=== PATIENT | male | born 2000 | race Caucasian/White ===

== ENCOUNTER 2023-11-04 15:43 | Inpatient (IN) | payer OTHER, SELFPAY ==
[2023-11-04 16:29] VITALS: BMI 19.8
[2023-11-04 16:30] VITALS: BP 114/65; PULSE 75; RESP 16; TEMP 36.8; O2SAT 98
[2023-11-04 19:21] LABS: Alanine Aminotransferase 26 U/L (0-40); Albumin Level 4.6 g/dL (3.5-5.0); Alkaline Phosphatase 72 U/L (39-117); Anion Gap 18 (12-20); Aspartate Amino Transferase 23 U/L (5-37); Bilirubin Total 2.4 mg/dL (0.0-1.0); Blood Urea Nitrogen 20 mg/dL (9-16); Calcium 9.8 mg/dL (8.4-10.2); Carbon Dioxide 29 mmol/L (22-29); Chloride 96 mmol/L (96-108); Creatinine Clr Calc Pharmacy 102.5; Estimated Glomerular Filt Rate > 60; Glucose Random 104 mg/dL (60-115); Potassium 4.2 mmol/L (3.3-5.1); Sodium 139 mmol/L (135-145); Total Protein 7.6 g/dL (6.5-8.0)
--- NOTE | 2023-11-04 19:41 | P.CONHOSP_ITS ---
History of Present Illness Data of Consult Service Date: 11/04/23 Primary Care Provider: Unknown Physician HPI Reason for consult: Admission H&P Pt is a 23-year-old male with a PMH significant for?Crohn's, hx of cholecystectomy, and anxiety who is admitted to [facility] psychiatry unit for increased anxiety and depression with vague SI with no plan. Patient apparently has been distraught over ongoing medical conditions and has sent messages to his parents asking them to euthanize him. Medical consult for admission H&P. Pt has multiple chronic complaints, including headache, central nonradiating abdominal pain, nausea, and diarrhea at least once a week. Patient is not on any medication for his Crohn's, but follows a carnivore/keto diet to help manage symptoms. Last flare was in 2019. Patient also complains of multiple canker sores on his cheek and under his tongue for the past few days. Denies chest pain/pressure, palpitations. No shortness of breath. Denies fever, chills. CMP reviewed, significant for elevated bilirubin at 2.4, otherwise unremarkable. Review of Systems 2 Review of Systems: Multiple canker sores on cheeks and under tongue Chronic central, nonradiating abdominal pain Chronic headache Chronic diarrhea at least once a week Chronic nausea PMFSH Medical History (Updated 11/04/23 @ 22:39 by ANTIONE Lopez) Chronic nausea Chronic headaches Crohn's disease Surgical History (Updated 11/04/23 @ 22:37 by ANTIONE Lopez) History of cholecystectomy Social History Advance Directives: No Advance Directives Information Provided: No Meds Allergies Allergy/AdvReac Type Severity Reaction Status Date / Time No Known Allergies Allergy Verified 11/04/23 16:35 Active Medications: Current Medications Acetaminophen (Acetaminophen 325 Mg Tablet) 650 mg PO Q6H PRN PRN Reason: Headache/Pain Mild Scale (1-3) Al Hydroxide/Mg Hydroxide (Magnesium Hydrox/Alum Hydrox 30 Ml Oral.Susp) 30 ml PO Q6H PRN PRN Reason: Heartburn/Nausea Hydroxyzine HCl (Hydroxyzine Hcl 25 Mg Tablet) 25 mg PO Q6H PRN PRN Reason: Anxiety Magnesium Hydroxide (Milk Of Magnesia 30 Ml Oral.Susp) 30 ml PO DAILY PRN PRN Reason: Constipation Nicotine (Nicotine 21 Mg Patch.Td24) 21 mg TRANSDERMA DAILY PRN PRN Reason: smoking cessation Nicotine Polacrilex (Nicotine Polacrilex 2 Mg Gum) 4 mg BUCCAL Q2H PRN PRN Reason: Nicotine Cravings Trazodone HCl (Trazodone Hcl 50 Mg Tablet) 50 mg PO BEDTIME MRX1 PRN PRN Reason: Insomnia Physical Exam 2 Vital Signs and Narrative: Vital Signs: BMI result Body Mass Index 19.8 Constitutional: Alert, thin, in no acute distress. Mental Status: Oriented to person, place and time. Eyes: Pupils are equal, round, and reactive to light. Ear, Nose, and Throat: Oval ulcer anterior cheek, smaller ulcers under tongue. Mucous membranes moist. Ears and nose without deformities. Trachea midline. Respiratory: Clear to auscultation bilaterally. No wheezing, rales, or rhonchi. Cardiovascular: S1, S2 regular. No murmurs, rubs, or gallops. Gastrointestinal: Abdomen soft, non-tender, non-distended. Normal bowel sounds. Neurologic: Cranial nerves II-XII are grossly intact bilaterally. No focal neurological deficits. Moves all extremities spontaneously. Skin: Warm, dry. Musculoskeletal: No cyanosis or clubbing. Extremities: No edema. Psychiatric: Normal mood and affect. Results Labs 11/04/23 18:53 Labs: Laboratory Results - last 24 hr 11/04/23 18:53 Anion Gap 18 Estim Creat Clear Calc 102.5 Estimated GFR > 60 Random Glucose 104 Calcium 9.8 Total Bilirubin 2.4 H AST 23 ALT 26 Alkaline Phosphatase 72 Total Protein 7.6 Albumin 4.6 Assessment and Plan (1) Medical clearance for psychiatric admission: Status: Acute Plan Pt is a 23-year-old male with a PMH significant for?Crohn's, hx of cholecystectomy, and anxiety who is admitted to [facility] psychiat[facility] unit for increased anxiety and depression with vague SI with no plan. Patient apparently has been distraught over ongoing medical conditions and has sent messages to his parents asking them to euthanize him. Medical consult for admission H&P. Mood disorder Plan as per Psychiatry Aphthous ulcers Anbesol qid prn Crohn's disease Not in acute flare, not on home medications Continue keto/carnivore diet Chronic headaches Acetaminophen Thank you for allowing us to participate in the care of this patient. Signing off at this time. Please re-consult if any acute complaints or issues arise.
[2023-11-04] MEDS: Nicotine Polacrilex 2 MG GUM 4 MG BUCCAL (21:40)
[2023-11-05] MEDS: Nicotine Polacrilex 2 MG GUM 4 MG BUCCAL (00:52)
--- NOTE | 2023-11-05 02:37 | PC.ADMIT ---
Patient is a 23 year old single Setswana speaking male, admitted as a CV admission to at 1600 11/04/23 and placed on 15 minute safety checks. Patient compliant with skin check. Patient was medically cleared in the [facility] ED, evaluated by the crisis team and deemed in need of IPLOC secondary to not eating, hopelessness and reporting SI to his parents. He had also texted his parents to euthanize him to get him out of his current psychiatric episode. Patient has a history of anxiety as well as a history of anorexia. Patient said his issues stem from Akathisia that occurred a number of years ago after he was given a shot of Reglan. He said he has not felt the same since, and he has tried medications with limited success to reduce his achy feeling . Patient was guarded and limited with his answers to questions during the admission process. He said other than Akathisia he is doing okay. He denied any SI, HI, AH or VH. Patient did mention that he has a neuropsychiatrist in [place] who has tried to help him. He said that he is currently only eating meat to help with his symptoms. He was able to sign legal releases for his father, mother, pharmacy and the neuropsychiatrist.. He said he really does not think he needs to be in the hospital and would like to leave as soon as possible. After speaking with this creative writer, the patient had a half hour visit with his parents. Patient compliant with skin check, ate dinner and then proceeded to eat a wide variety of snacks, including ice cream, sandwich, juice, crackers, potato chips and jello. This creative writer spoke with the patient's mother, who had called to check on the patient. She said he has been steadily getting worse for the last few weeks and has cut way down on his food consumption. The mother also said the patient has a history of tube feeding when he was younger as well as multiple concussions from playing sports. The mother said she is available to answer questions and hopes the providers here will obtain records from [facility] , [facility] and the neuropsychiatrist. Both parents are concerned for their son's health and have tried to encourage him to take medications to relieve his symptoms. According to the mother, Seroquel and Cymbalta had been helpful in the past but that her son said the efficacy wore off after a few months and he does not want to risk side effects from taking medications again.
[2023-11-05 07:00] VITALS: BMI 21.4
[2023-11-05 08:00] VITALS: BP 133/83; PULSE 71; RESP 18; TEMP 2.7; TEMP 36.9; O2SAT 99
[2023-11-05 09:54] LABS: Estimated Average Glucose 97 mg/dL
[2023-11-05 10:01] LABS: Cholesterol 116 mg/dL (<200); HDL Cholesterol 40 mg/dL (>40); LDL Cholesterol Calculated 61 mg/dL (<100); Triglycerides 79 mg/dL (<150)
[2023-11-05 10:17] LABS: TSH reflex Free T4 1.37 uIU/mL (0.32-4.0)
--- NOTE | 2023-11-05 10:51 | HO.PSYADMNOT ---
HPI Date of Service: 11/05/23 Chief Complaint: Gen Anxiety D/O Unspec Psychosis Sources of Information: patient interviewed, chart reviewed and crisis/core team assessment reviewed Additional Sources of Information: Mother HPI Subjective Notes: Qureshi Warning and Conditional Voluntary Healthcare Proxy: No Guardianship: No Medical Problems Affecting Mental Status: Yes Narrative: 23 yo male, hx of anorexia, asthma, cluster B personality disorder, concussions, FTT, MDD, psychosis. Reports he is here for med trials. Hx of efficacy with Cymbalta and Seroquel. He found Cymbalta to be unhelpful so would like to trial Effexor (Cymbalta was not a full trial per his report). Reports sx began 5 years ago with a severe akathesia from an antiemetic, Reglan. Believes this sx has recurred. States he is here on a voluntary basis, but is very scared, because when ill, I am a different person. Allowed a brief meeting then asked to continue at another time. Struggling to eat with N/V for a few weeks. Experiences SI intermittently, has requested parents euthanize him. Denies plan or intent, Denies SIBS. Does punch through trivedi when angry. Mom reports pt is struggling to regulate mood with insomnia, agitation. Sensitive to smell-demands family not cook or eat in the home. Asks family to not enter his room, to talk with him from his doorway and needs to shower often to rid himself of smells. He is resistant to meds- using estrogen, elemental cobalt, peptides. Pt states he will try to work with team on meds. Neuro recommends cymbalta, olanzapine trial Past Psychiatric History: IP:2019 [facility] [place]: None. Mitra Connelly, neurologist prescribes Trials: Cymbalta, Seroquel Medical Evaluation Reviewed: Yes [facility] Medical History (Updated 11/05/23 @ 17:52 by Leesa Urbano APRN) TBI (traumatic brain injury) Anorexia Severe recurrent major depression w/psychotic features, mood-congruent Chronic nausea Chronic headaches Crohn's disease Surgical History History of cholecystectomy Social History: Lives in [place] with parents. Currently not working Substance History: Cannabis by hx. Has olfactory sx now of smelling it-Use caused AH Diagnostics Vital Signs (24Hr): Vital Signs - 24 hr 11/04/23 16:30 11/05/23 08:00 Temperature 98.2 F 36.9 F L Pulse Rate 75 71 Respiratory Rate 16 18 Blood Pressure 114/65 133/83 Pulse Oximetry 98 99 Oxygen Delivery Method Room Air Room Air BMI result Body Mass Index 19.8 Labs 11/04/23 18:53 Labs: Laboratory Results - last 48 hr 11/04/23 11/05/23 18:53 09:04 Sodium 139 Potassium 4.2 Chloride 96 Carbon Dioxide 29 Anion Gap 18 BUN 20 H Creatinine 1.06 Estim Creat Clear Calc 102.5 Estimated GFR > 60 Random Glucose 104 Estimat Average Glucose 97 Hemoglobin A1c % 5.0 Calcium 9.8 Total Bilirubin 2.4 H AST 23 ALT 26 Alkaline Phosphatase 72 Total Protein 7.6 Albumin 4.6 Triglycerides 79 Cholesterol 116 LDL Cholesterol, Calc 61 HDL Cholesterol 40 L TSH 1.37 Meds/Allergies Allergies Allergies Allergy/AdvReac Type Severity Reaction Status Date / Time diphenhydramine Allergy Unknown Verified 11/05/23 02:05 lorazepam Allergy Unknown Verified 11/05/23 02:05 metoclopramide Allergy Unknown Verified 11/05/23 02:05 ondansetron Allergy Unknown Verified 11/05/23 02:05 Mental Status Exam Mental Status Exam Patient Appearance: Fatigued Patient Orientation: Person, Place, Time and Situation Level of Consciousness: Alert Patient Behavior: Guarded, Talkative, Suspicious and Good Eye Contact Mood Description: Constricted Affect Description: Constricted Patient Cognition Impaired: No Ability to Follow Directions: Good Speech Pattern: Spontaneous Speech Memory Description: Episodic Impaired Hallucinations: None Delusions: Present Thought Process: Distracted and Rumination Thought Content: positive for Perseveration and positive for Suicidal Ideation Depressive Symptoms: Changes in Appetite Judgement: Fair Assessment & Plan Assessment & Plan (1) Severe recurrent major depression w/psychotic features, mood-congruent: Status: Acute Code(s): F33.3 - Major depressive disorder, recurrent, severe with psychotic symptoms (2) Anorexia: Status: Acute Code(s): R63.0 - Anorexia Plan 23 yo male, hx of anorexia, cluster B personality disorder, concussion, FTT, Depression with psychosis. Struggling to eat with mood lability, SI, aggressive agitation prior to admission. Plan: Collateral contacts Venlafaxine 37.5 mg daily Olanzapine 5 mg bid prn Intake and Output Full milieu. Patient educated on: medication risk/benefits and therapeutic strategies Informed Consent: further education needed Reason for continued inpatient stay Substantial Risk for: med/psych decompensation Statement Statement: I have reviewed the history and physical and performed a pertinent examination on my patient. No changes have occurred unless specified. If the History and Physical was not performed prior to admission, the Hospitalist's service will be consulted for completing the admission physical. Time Spent With Patient Time: Total time managing care of this patient today ____ minutes.
[2023-11-06 08:36] VITALS: BP 136/89; PULSE 123; RESP 16; TEMP 36.8; O2SAT 98
--- NOTE | 2023-11-06 13:41 | HO.PSYCHPN ---
Subjective Subjective Date of Service: 11/06/23 Reason For Visit: Gen Anxiety D/O Unspec Psychosis Subjective Notes: Conditional Voluntary Interim History: Reviewed with . Met with patient and social media coordinator (Amber) present. Pt presents calm, cooperative. Pt stated, my throat hurts, stomach and head. Nerve pain is the best way to describe it. If I'm not in pain, I'm agitated. If I'm not agitated, I'm in pain . reports hx of taking Gabapentin for nerve pain but was not helpful. Pt reports he has been sleeping well and eating okay . He is worried that when he becomes agitated it becomes difficult to swallow . not attending groups. keeping to self. denies SI/HI/VH/AH. He is requesting to have Seroquel 50mg PO bedtime. Start: Seroquel 50mg PO bedtime. Attending Groups: No Review of Systems Constitutional: Reports as per HPI Eyes: Reports as per HPI Reports as per HPI Cardiovascular: Reports as per HPI Respiratory: Reports as per HPI Gastrointestinal: Reports as per HPI Genitourinary: Reports as per HPI Musculoskeletal: Reports as per HPI Skin/Breast: Reports as per HPI Reports as per HPI Psychiatric: Reports as per HPI Endocrine: Reports as per HPI Hematologic/Lymphatic: Reports as per HPI Allergic/Immunologic: Reports as per HPI Mental Status Exam Mental Status Exam Narrative: Pt is alert and oriented; behavior is cooperative; dressed in casual attire; mood is described as agitated ; eye contact appropriate; Speech is normal rate, volume and prosody and not pressured; thought process is organized and goal directed; Thought content is on tx; denies SI/HI/VH/AH. Patient Appearance: Well Grooomed Patient Orientation: Person, Place, Time and Situation Level of Consciousness: Awake Patient Behavior: Appropriate Diagnostics Vital Signs (24Hr): Vital Signs - 24 hr 11/06/23 08:36 Temperature 98.2 F Pulse Rate 123 H Respiratory Rate 16 Blood Pressure 136/89 Pulse Oximetry 98 Oxygen Delivery Method Room Air BMI result Body Mass Index 21.4 Labs 11/04/23 18:53 Labs: Laboratory Results - last 48 hr 11/04/23 11/05/23 18:53 09:04 Sodium 139 Potassium 4.2 Chloride 96 Carbon Dioxide 29 Anion Gap 18 BUN 20 H Creatinine 1.06 Estim Creat Clear Calc 102.5 Estimated GFR > 60 Random Glucose 104 Estimat Average Glucose 97 Hemoglobin A1c % 5.0 Calcium 9.8 Total Bilirubin 2.4 H AST 23 ALT 26 Alkaline Phosphatase 72 Total Protein 7.6 Albumin 4.6 Triglycerides 79 Cholesterol 116 LDL Cholesterol, Calc 61 HDL Cholesterol 40 L TSH 1.37 Medications Medications Current Medications Acetaminophen (Acetaminophen 325 Mg Tablet) 650 mg PO Q6H PRN PRN Reason: Headache/Pain Mild Scale (1-3) Al Hydroxide/Mg Hydroxide (Magnesium Hydrox/Alum Hydrox 30 Ml Oral.Susp) 30 ml PO Q6H PRN PRN Reason: Heartburn/Nausea Benzocaine (Benzocaine 20 % Oral Gel 9 Gm Tube) 1 appl MUCOUS MEM QID PRN; Protocol PRN Reason: Mouth Sore Pain Hydroxyzine HCl (Hydroxyzine Hcl 25 Mg Tablet) 25 mg PO Q6H PRN PRN Reason: Anxiety Magnesium Hydroxide (Milk Of Magnesia 30 Ml Oral.Susp) 30 ml PO DAILY PRN PRN Reason: Constipation Nicotine (Nicotine 21 Mg Patch.Td24) 21 mg TRANSDERMA DAILY PRN PRN Reason: smoking cessation Nicotine Polacrilex (Nicotine Polacrilex 2 Mg Gum) 4 mg BUCCAL Q2H PRN PRN Reason: Nicotine Cravings Last Admin: 11/05/23 00:52 Dose: 4 mg Olanzapine (Olanzapine 5 Mg Tablet) 5 mg PO BID PRN PRN Reason: agitation, psychosis Trazodone HCl (Trazodone Hcl 50 Mg Tablet) 50 mg PO BEDTIME MRX1 PRN PRN Reason: Insomnia Venlafaxine HCl (Venlafaxine Hcl Er 37.5 Mg Cap.Er.24h) 37.5 mg PO DAILY [facility] Last Admin: 11/06/23 08:29 Dose: Not Given Allergies Allergies Allergy/AdvReac Type Severity Reaction Status Date / Time diphenhydramine Allergy Unknown Verified 11/05/23 02:05 lorazepam Allergy Unknown Verified 11/05/23 02:05 metoclopramide Allergy Unknown Verified 11/05/23 02:05 ondansetron Allergy Unknown Verified 11/05/23 02:05 Assessment & Plan Assessment & Plan (1) Severe recurrent major depression w/psychotic features, mood-congruent: Status: Acute Code(s): F33.3 - Major depressive disorder, recurrent, severe with psychotic symptoms (2) Anorexia: Status: Acute Code(s): R63.0 - Anorexia Plan 23 yo male, hx of anorexia, cluster B personality disorder, concussion, FTT, Depression with psychosis. Struggling to eat with mood lability, SI, aggressive agitation prior to admission. Plan: Collateral contacts Venlafaxine 37.5 mg daily Olanzapine 5 mg bid prn Intake and Output Full milieu. 11/06: Met with patient and social media coordinator (Amber) present. Pt presents calm, cooperative. Pt stated, my throat hurts, stomach and head. Nerve pain is the best way to describe it. If I'm not in pain, I'm agitated. If I'm not agitated, I'm in pain . reports hx of taking Gabapentin for nerve pain but was not helpful. Pt reports he has been sleeping well and eating okay . He is worried that when he becomes agitated it becomes difficult to swallow . not attending groups. keeping to self. denies SI/HI/VH/AH. He is requesting to have Seroquel 50mg PO bedtime. Start: Seroquel 50mg PO bedtime. Reason for continued inpatient stay Substantial Risk for: med/psych decompensation Time Spent With Patient Time: Total time managing care of this patient today ____ minutes.
[2023-11-07 08:15] VITALS: BP 120/86; PULSE 95; RESP 16; TEMP 37.2; O2SAT 99
--- NOTE | 2023-11-07 09:33 | P.PNPSI_ITS ---
Subjective Subjective Date of Service: 11/07/23 Reason For Visit: Gen Anxiety D/O Unspec Psychosis Subjective Notes: Conditional Voluntary Interim History: Patient was seen and discussed in rounds today. Records and plans were reviewed. He has been stable and is doing well. He denies any side effects to his medications. He is settling in on the unit. He has not been attending groups. Agitated and crying at times. He is requesting antibiotic ointment for his right thumb which looks little inflamed and infected. Slept adequately. No other changes were made Review of Systems Review of Systems Swollen and infected right thumb nailbed Yes all other systems are reviewed and are negative Mental Status Exam Mental Status Exam Narrative: In today's visit he is alert, oriented and pleasant. Normal speech. Good eye contact. Appropriate and varied affect. Moderate dysphoria present. No signs of psychosis. Cognitively is intact. Judgment is intact Diagnostics Vital Signs (24Hr): Vital Signs - 24 hr 11/07/23 08:15 Temperature 98.9 F Pulse Rate 95 Respiratory Rate 16 Blood Pressure 120/86 Pulse Oximetry 99 Oxygen Delivery Method Room Air BMI result Body Mass Index 21.4 Labs 11/04/23 18:53 Labs: Laboratory Results - last 48 hr 11/05/23 09:04 Estimat Average Glucose 97 Hemoglobin A1c % 5.0 Triglycerides 79 Cholesterol 116 LDL Cholesterol, Calc 61 HDL Cholesterol 40 L TSH 1.37 Medications Medications Current Medications Acetaminophen (Acetaminophen 325 Mg Tablet) 650 mg PO Q6H PRN PRN Reason: Headache/Pain Mild Scale (1-3) Al Hydroxide/Mg Hydroxide (Magnesium Hydrox/Alum Hydrox 30 Ml Oral.Susp) 30 ml PO Q6H PRN PRN Reason: Heartburn/Nausea Benzocaine (Benzocaine 20 % Oral Gel 9 Gm Tube) 1 appl MUCOUS MEM QID PRN; Protocol PRN Reason: Mouth Sore Pain Hydroxyzine HCl (Hydroxyzine Hcl 25 Mg Tablet) 25 mg PO Q6H PRN PRN Reason: Anxiety Magnesium Hydroxide (Milk Of Magnesia 30 Ml Oral.Susp) 30 ml PO DAILY PRN PRN Reason: Constipation Nicotine (Nicotine 21 Mg Patch.Td24) 21 mg TRANSDERMA DAILY PRN PRN Reason: smoking cessation Nicotine Polacrilex (Nicotine Polacrilex 2 Mg Gum) 4 mg BUCCAL Q2H PRN PRN Reason: Nicotine Cravings Last Admin: 11/05/23 00:52 Dose: 4 mg Quetiapine Fumarate (Quetiapine Fumarate 50 Mg Tablet) 50 mg PO BEDTIME JERALD Last Admin: 11/06/23 22:00 Dose: Not Given Quetiapine Fumarate (Quetiapine Fumarate 25 Mg Tablet) 25 mg PO BID PRN PRN Reason: Anxiety Trazodone HCl (Trazodone Hcl 50 Mg Tablet) 50 mg PO BEDTIME MRX1 PRN PRN Reason: Insomnia Venlafaxine HCl (Venlafaxine Hcl Er 37.5 Mg Cap.Er.24h) 37.5 mg PO DAILY [facility] Last Admin: 11/07/23 09:10 Dose: Not Given Allergies Allergies Allergy/AdvReac Type Severity Reaction Status Date / Time diphenhydramine Allergy Unknown Verified 11/05/23 02:05 lorazepam Allergy Unknown Verified 11/05/23 02:05 metoclopramide Allergy Unknown Verified 11/05/23 02:05 ondansetron Allergy Unknown Verified 11/05/23 02:05 Assessment & Plan Assessment & Plan (1) Severe recurrent major depression w/psychotic features, mood-congruent: Status: Acute Code(s): F33.3 - Major depressive disorder, recurrent, severe with psychotic symptoms (2) Anorexia: Status: Acute Code(s): R63.0 - Anorexia Plan 23 yo male, hx of anorexia, cluster B personality disorder, concussion, FTT, Depression with psychosis. Struggling to eat with mood lability, SI, aggressive agitation prior to admission. Plan: Collateral contacts Venlafaxine 37.5 mg daily Olanzapine 5 mg bid prn Intake and Output Full milieu. 11/06: Met with patient and social service worker (Amber) present. Pt presents calm, cooperative. Pt stated, my throat hurts, stomach and head. Nerve pain is the best way to describe it. If I'm not in pain, I'm agitated. If I'm not agitated, I'm in pain . reports hx of taking Gabapentin for nerve pain but was not helpful. Pt reports he has been sleeping well and eating okay . He is worried that when he becomes agitated it becomes difficult to swallow . not attending groups. keeping to self. denies SI/HI/VH/AH. He is requesting to have Seroquel 50mg PO bedtime. Start: Seroquel 50mg PO bedtime. 11/07/23: Continue current regimen and plans Patient educated on: medication risk/benefits Reason for continued inpatient stay Substantial Risk for: med/psych decompensation Time Spent With Patient Time: Total time managing care of this patient today ____ minutes.
[2023-11-08 08:49] VITALS: BP 132/84; PULSE 104; RESP 16; TEMP 36.8; O2SAT 98
--- NOTE | 2023-11-08 09:22 | P.PNPSI_ITS ---
Subjective Subjective Date of Service: 11/08/23 Reason For Visit: Gen Anxiety D/O Unspec Psychosis Subjective Notes: Conditional Voluntary Interim History: Patient was seen and discussed in rounds today. Records and plans were reviewed. He continues to refuse meds. Eating and sleeping adequately. Some increase in level of anxiety but does not want anything. No changes were made today. No behavioral issues reported. Review of Systems Review of Systems Yes all other systems are reviewed and are negative Mental Status Exam Mental Status Exam Narrative: In today's visit he is alert, oriented and pleasant. Normal speech. Good eye contact. Appropriate and varied affect. Moderate dysphoria present. No signs of psychosis. Cognitively is intact. Judgment is intact Diagnostics Vital Signs (24Hr): Vital Signs - 24 hr 11/08/23 08:49 Temperature 98.2 F Pulse Rate 104 H Respiratory Rate 16 Blood Pressure 132/84 Pulse Oximetry 98 Oxygen Delivery Method Room Air BMI result Body Mass Index 21.4 Labs 11/04/23 18:53 Medications Medications Current Medications Acetaminophen (Acetaminophen 325 Mg Tablet) 650 mg PO Q6H PRN PRN Reason: Headache/Pain Mild Scale (1-3) Al Hydroxide/Mg Hydroxide (Magnesium Hydrox/Alum Hydrox 30 Ml Oral.Susp) 30 ml PO Q6H PRN PRN Reason: Heartburn/Nausea Bacitracin (Bacitracin Oint 14 Gm Tube) 1 appl TOPICAL BID JERALD; Protocol Stop: 11/10/23 23:59 Last Admin: 11/08/23 09:16 Dose: Not Given Benzocaine (Benzocaine 20 % Oral Gel 9 Gm Tube) 1 appl MUCOUS MEM QID PRN; Protocol PRN Reason: Mouth Sore Pain Hydroxyzine HCl (Hydroxyzine Hcl 25 Mg Tablet) 25 mg PO Q6H PRN PRN Reason: Anxiety Magnesium Hydroxide (Milk Of Magnesia 30 Ml Oral.Susp) 30 ml PO DAILY PRN PRN Reason: Constipation Nicotine (Nicotine 21 Mg Patch.Td24) 21 mg TRANSDERMA DAILY PRN PRN Reason: smoking cessation Nicotine Polacrilex (Nicotine Polacrilex 2 Mg Gum) 4 mg BUCCAL Q2H PRN PRN Reason: Nicotine Cravings Last Admin: 11/05/23 00:52 Dose: 4 mg Quetiapine Fumarate (Quetiapine Fumarate 50 Mg Tablet) 50 mg PO BEDTIME JERALD Last Admin: 11/07/23 20:21 Dose: Not Given Quetiapine Fumarate (Quetiapine Fumarate 25 Mg Tablet) 25 mg PO BID PRN PRN Reason: Anxiety Trazodone HCl (Trazodone Hcl 50 Mg Tablet) 50 mg PO BEDTIME MRX1 PRN PRN Reason: Insomnia Venlafaxine HCl (Venlafaxine Hcl Er 37.5 Mg Cap.Er.24h) 37.5 mg PO DAILY JERALD Last Admin: 11/08/23 09:16 Dose: Not Given Allergies Allergies Allergy/AdvReac Type Severity Reaction Status Date / Time diphenhydramine Allergy Unknown Verified 11/05/23 02:05 lorazepam Allergy Unknown Verified 11/05/23 02:05 metoclopramide Allergy Unknown Verified 11/05/23 02:05 ondansetron Allergy Unknown Verified 11/05/23 02:05 Assessment & Plan Assessment & Plan (1) Severe recurrent major depression w/psychotic features, mood-congruent: Status: Acute Code(s): F33.3 - Major depressive disorder, recurrent, severe with psychotic symptoms (2) Anorexia: Status: Acute Code(s): R63.0 - Anorexia Plan 23 yo male, hx of anorexia, cluster B personality disorder, concussion, FTT, Depression with psychosis. Struggling to eat with mood lability, SI, aggressive agitation prior to admission. Plan: Collateral contacts Venlafaxine 37.5 mg daily Olanzapine 5 mg bid prn Intake and Output Full milieu. 11/06: Met with patient and 7th grade social studies teacher (Amber) present. Pt presents calm, cooperative. Pt stated, my throat hurts, stomach and head. Nerve pain is the best way to describe it. If I'm not in pain, I'm agitated. If I'm not agitated, I'm in pain . reports hx of taking Gabapentin for nerve pain but was not helpful. Pt reports he has been sleeping well and eating okay . He is worried that when he becomes agitated it becomes difficult to swallow . not attending groups. keeping to self. denies SI/HI/VH/AH. He is requesting to have Seroquel 50mg PO bedtime. Start: Seroquel 50mg PO bedtime. 11/07/23: Continue current regimen and plans 11/08/2023: Continue current regimen and plans Reason for continued inpatient stay Substantial Risk for: med/psych decompensation Time Spent With Patient Time: Total time managing care of this patient today ____ minutes.
[2023-11-08 17:15] VITALS: BP 130/78; PULSE 112; RESP 18; O2SAT 100
[2023-11-09 09:12] VITALS: BP 138/76; PULSE 107; RESP 16; TEMP 36.8; O2SAT 99
--- NOTE | 2023-11-09 12:07 | HO.PSYCHPN ---
Subjective Subjective Date of Service: 11/09/23 Reason For Visit: Gen Anxiety D/O Unspec Psychosis Subjective Notes: Conditional Voluntary Healthcare Proxy: No Guardianship: No Medical Problems Affecting Mental Status: No Interim History: Met with pt, reviewed with team. Pt has declined all medications since admission, including the requested medications. He has declined milieu participation He has exhibited no issues with behavioral dyscontrol, but is isolative. He has been able to eat and drink, items of his choice, throughtout the weekend. He denies SI, HI, exhibits no sx of psychosis, is alert, oriented, engaged when meeting this a.m. He reports he is not wanting to participate in treatment, is not interested in medications, and would like to plan discharge. He denies contact with [place] [facility] Mitra Connel[place]. Call to pt's mother Brittany with Amber Del Castillo LCSW to review pt's weekend, requests. Discussed that we have not seen any symptoms that were described by family at home since admission. Discussed pt not wanting to participate in treatment and asking for discharge. Pt was asked to call his mother to discuss returning home or another option. Brittany called later in the afternoon stating she spoke with pt's father and home would not be an option for him, given behaviors [employer]KER. She expressed concern that pt reporting going to a hotel or staying with a friend be verified prior to discharge as family would be concerned if he discharged to the street. Brittany called [facility] to discuss respite, she talked with their team about the services, however, pt is not interested in this option. She discussed her impression from [facility] staff prior to admission that we would be able to transfer pt to another hospital if the family chose this option. Discussed with Brittany that lateral transfers were not considered an option. Brittany also asked to be reassured by judicial administrative assistant that pt's discharge was not allowing him to go to the street. Later in the day, pt began to communicate with his mother. He is anticipating going to a hotel in [place] upon discharge as parents do not want him at home. We will continue to assess as they communicate with each other this evening as to a safe plan of care. Pt states he is hoping to revive his [employer] connection/business. He reports he will follow up with Dr. Connelly (they text). He reports he feels improved as compared to when admitted. Brittany reports concerns that pt needs to be re-socialized and that he has lived on his own briefly in college and it did not go well for him. She also states Dr. Connelly believes he has a mood disorder as their is a family history (uncles on both sides, family hx of anxiety, ETOH, Dementia) Medication Compliance: No Side effects from medications: No Attending Groups: No Review of Systems Acute medical concerns: No Medical Review of Systems: unchanged Review of Systems Review of Systems Yes all other systems are reviewed and are negative Mental Status Exam Mental Status Exam Patient Appearance: Appropriate Patient Orientation: Person, Place, Time and Situation Level of Consciousness: Alert Patient Behavior: Talkative and Good Eye Contact Mood Description: Constricted Affect Description: Constricted Patient Cognition Impaired: No Ability to Follow Directions: Good Speech Pattern: Spontaneous Speech Memory Description: Intact Hallucinations: None Delusions: Not Present Thought Process: Intact and Goal Oriented Thought Content: positive for Intact and positive for Goal Oriented Depressive Symptoms: Increased Anxiety and Thoughts of /Suicide (denies) Judgement: Good Diagnostics Vital Signs (24Hr): Vital Signs - 24 hr 11/08/23 17:15 11/09/23 09:12 Temperature 98.2 F Pulse Rate 112 H 107 H Respiratory Rate 18 16 Blood Pressure 130/78 138/76 Pulse Oximetry 100 99 Oxygen Delivery Method Room Air Room Air BMI result Body Mass Index 21.4 Labs 11/04/23 18:53 Medications Medications Current Medications Acetaminophen (Acetaminophen 325 Mg Tablet) 650 mg PO Q6H PRN PRN Reason: Headache/Pain Mild Scale (1-3) Al Hydroxide/Mg Hydroxide (Magnesium Hydrox/Alum Hydrox 30 Ml Oral.Susp) 30 ml PO Q6H PRN PRN Reason: Heartburn/Nausea Bacitracin (Bacitracin Oint 14 Gm Tube) 1 appl TOPICAL BID JERALD; Protocol Stop: 11/10/23 23:59 Last Admin: 11/09/23 09:10 Dose: Not Given Benzocaine (Benzocaine 20 % Oral Gel 9 Gm Tube) 1 appl MUCOUS MEM QID PRN; Protocol PRN Reason: Mouth Sore Pain Hydroxyzine HCl (Hydroxyzine Hcl 25 Mg Tablet) 25 mg PO Q6H PRN PRN Reason: Anxiety Magnesium Hydroxide (Milk Of Magnesia 30 Ml Oral.Susp) 30 ml PO DAILY PRN PRN Reason: Constipation Nicotine (Nicotine 21 Mg Patch.Td24) 21 mg TRANSDERMA DAILY PRN PRN Reason: smoking cessation Nicotine Polacrilex (Nicotine Polacrilex 2 Mg Gum) 4 mg BUCCAL Q2H PRN PRN Reason: Nicotine Cravings Last Admin: 11/05/23 00:52 Dose: 4 mg Quetiapine Fumarate (Quetiapine Fumarate 50 Mg Tablet) 50 mg PO BEDTIME JERALD Last Admin: 11/08/23 21:15 Dose: Not Given Quetiapine Fumarate (Quetiapine Fumarate 25 Mg Tablet) 25 mg PO BID PRN PRN Reason: Anxiety Trazodone HCl (Trazodone Hcl 50 Mg Tablet) 50 mg PO BEDTIME MRX1 PRN PRN Reason: Insomnia Venlafaxine HCl (Venlafaxine Hcl Er 37.5 Mg Cap.Er.24h) 37.5 mg PO DAILY [facility] Last Admin: 11/09/23 09:10 Dose: Not Given Allergies Allergies Allergy/AdvReac Type Severity Reaction Status Date / Time diphenhydramine Allergy Unknown Verified 11/05/23 02:05 lorazepam Allergy Unknown Verified 11/05/23 02:05 metoclopramide Allergy Unknown Verified 11/05/23 02:05 ondansetron Allergy Unknown Verified 11/05/23 02:05 Assessment & Plan Assessment & Plan (1) Severe recurrent major depression w/psychotic features, mood-congruent: Status: Acute Code(s): F33.3 - Major depressive disorder, recurrent, severe with psychotic symptoms (2) Anorexia: Status: Acute Code(s): R63.0 - Anorexia Plan 23 yo male, hx of anorexia, cluster B personality disorder, concussion, FTT, Depression with psychosis. Struggling to eat with mood lability, SI, aggressive agitation prior to admission. Plan: Collateral contacts Venlafaxine 37.5 mg daily Olanzapine 5 mg bid prn Intake and Output Full milieu. 11/06: Met with patient and social media designer (Amber) present. Pt presents calm, cooperative. Pt stated, my throat hurts, stomach and head. Nerve pain is the best way to describe it. If I'm not in pain, I'm agitated. If I'm not agitated, I'm in pain . reports hx of taking Gabapentin for nerve pain but was not helpful. Pt reports he has been sleeping well and eating okay . He is worried that when he becomes agitated it becomes difficult to swallow . not attending groups. keeping to self. denies SI/HI/VH/AH. He is requesting to have Seroquel 50mg PO bedtime. Start: Seroquel 50mg PO bedtime. 11/07/23: Continue current regimen and plans 11/08/2023: Continue current regimen and plans 11/09/23: Pt has not participate in any treatment since admission Denies SI, HI. No sx of psychosis. Discharge planning in process. Patient educated on: therapeutic strategies Guardian/Caregiver educated on: therapeutic strategies Informed Consent: understands Reason for continued inpatient stay Substantial Risk for: stable for discharge Time Spent With Patient Time: Total time managing care of this patient today ____ minutes.
[2023-11-09 18:00] VITALS: BP 112/84; PULSE 99; RESP 16; TEMP 36.7; O2SAT 99
--- NOTE | 2023-11-09 19:34 | PC.NURSE ---
Assumed care of this pt at 19:30. Sitting in kitchen, watching television and eating snacks. Offers no complaints @ this time. Plan of care ongoing.
[2023-11-10 09:27] VITALS: BP 131/87; PULSE 112; RESP 18; TEMP 36.2; O2SAT 98
--- NOTE | 2023-11-10 19:50 | P.PNPSI_ITS ---
Subjective Subjective Date of Service: 11/10/23 Reason For Visit: Gen Anxiety D/O Unspec Psychosis Subjective Notes: Conditional Voluntary and 3 Day (11/09/22) Healthcare Proxy: Yes Guardianship: No Medical Problems Affecting Mental Status: No Interim History: Pt seen, reviewed in team. Message received from Moo Gresham, mergers and acquisitions attorney for parents, stating he is puzzled by plan to discharge as no treatment has been offered or given . He asks for a call and explanation [phone]. Message received from Brittany Jacob, asking for a status update, asking that I call her mergers and acquisitions attorney, review care and discharge plan for his and parents approval and that I respect the fact that she and pt's father need to work and this needs to be a priority and done RAFFY. Met with pt and Amber Del Castillo LCSW. Reviewed mother's and attorneys request. Discussed three day notice with pt, who signed this. As he requested discharge 11/09, this was dated 11/09 when he made the request to leave. Pt was calm with the new information received, yet distressed. He declined ALINE for communication with mergers and acquisitions attorney Marga and asks that we not contact parents even though there is a written ALINE. He asks that we not contact his OP MD Dr. Connelly. He would like some time to consider these new developments, talk with his family, and make a plan he is comfortable with. He denies SI, HI, declines medications, milieu and will inform the team when he decides how he would want us to interviene. Medication Compliance: No (refusing all meds since admit) Side effects from medications: No Attending Groups: No (declines) Review of Systems Acute medical concerns: No Declines further eval Medical Review of Systems: unchanged Review of Systems Review of Systems Yes all other systems are reviewed and are negative (denies sx. declines eval) Mental Status Exam Mental Status Exam Patient Appearance: Appropriate Patient Orientation: Person, Place, Time and Situation Level of Consciousness: Alert Patient Behavior: Talkative and Good Eye Contact Mood Description: Constricted and Anxious Affect Description: Constricted Patient Cognition Impaired: No Ability to Follow Directions: Good Speech Pattern: Spontaneous Speech Memory Description: Intact Hallucinations: None Delusions: Not Present Thought Process: Intact and Goal Oriented Thought Content: positive for Intact and positive for Goal Oriented Depressive Symptoms: Increased Anxiety and Thoughts of /Suicide (denies) Judgement: Good Diagnostics Vital Signs (24Hr): Vital Signs - 24 hr 11/10/23 09:27 Temperature 97.2 F Pulse Rate 112 H Respiratory Rate 18 Blood Pressure 131/87 Pulse Oximetry 98 Oxygen Delivery Method Room Air BMI result Body Mass Index 21.4 Labs 11/04/23 18:53 Medications Medications Current Medications Acetaminophen (Acetaminophen 325 Mg Tablet) 650 mg PO Q6H PRN PRN Reason: Headache/Pain Mild Scale (1-3) Al Hydroxide/Mg Hydroxide (Magnesium Hydrox/Alum Hydrox 30 Ml Oral.Susp) 30 ml PO Q6H PRN PRN Reason: Heartburn/Nausea Bacitracin (Bacitracin Oint 14 Gm Tube) 1 appl TOPICAL BID JERALD; Protocol Stop: 11/10/23 23:59 Last Admin: 11/10/23 08:55 Dose: Not Given Benzocaine (Benzocaine 20 % Oral Gel 9 Gm Tube) 1 appl MUCOUS MEM QID PRN; Protocol PRN Reason: Mouth Sore Pain Hydroxyzine HCl (Hydroxyzine Hcl 25 Mg Tablet) 25 mg PO Q6H PRN PRN Reason: Anxiety Magnesium Hydroxide (Milk Of Magnesia 30 Ml Oral.Susp) 30 ml PO DAILY PRN PRN Reason: Constipation Nicotine (Nicotine 21 Mg Patch.Td24) 21 mg TRANSDERMA DAILY PRN PRN Reason: smoking cessation Nicotine Polacrilex (Nicotine Polacrilex 2 Mg Gum) 4 mg BUCCAL Q2H PRN PRN Reason: Nicotine Cravings Last Admin: 11/05/23 00:52 Dose: 4 mg Quetiapine Fumarate (Quetiapine Fumarate 50 Mg Tablet) 50 mg PO BEDTIME [facility] Last Admin: 11/09/23 22:20 Dose: Not Given Quetiapine Fumarate (Quetiapine Fumarate 25 Mg Tablet) 25 mg PO BID PRN PRN Reason: Anxiety Trazodone HCl (Trazodone Hcl 50 Mg Tablet) 50 mg PO BEDTIME MRX1 PRN PRN Reason: Insomnia Venlafaxine HCl (Venlafaxine Hcl Er 37.5 Mg Cap.Er.24h) 37.5 mg PO DAILY [facility] Last Admin: 11/10/23 08:56 Dose: Not Given Allergies Allergies Allergy/AdvReac Type Severity Reaction Status Date / Time diphenhydramine Allergy Unknown Verified 01/11/24 02:05 lorazepam Allergy Unknown Verified 11/05/23 02:05 metoclopramide Allergy Unknown Verified 11/05/23 02:05 ondansetron Allergy Unknown Verified 11/05/23 02:05 Assessment & Plan Assessment & Plan (1) Severe recurrent major depression w/psychotic features, mood-congruent: Status: Acute Code(s): F33.3 - Major depressive disorder, recurrent, severe with psychotic symptoms (2) Anorexia: Status: Acute Code(s): R63.0 - Anorexia Plan 23 yo male, hx of anorexia, cluster B personality disorder, concussion, FTT, Depression with psychosis. Struggling to eat with mood lability, SI, aggressive agitation prior to admission. Plan: Collateral contacts Venlafaxine 37.5 mg daily Olanzapine 5 mg bid prn Intake and Output Full milieu. 11/10/23 Three day notice dated 11/09/23. Pt has declined contact with parents and their mergers and acquisitions attorney, Moo Gresham. He has declined contact with his OP psychiatrist, Mitra Connelly. Patient educated on: other Informed Consent: understands Reason for continued inpatient stay Substantial Risk for: other (TDN,Conflict pt and family) Time Spent With Patient Time: Total time managing care of this patient today ____ minutes.
[2023-11-10 19:53] VITALS: RESP 18
[2023-11-11 09:00] VITALS: RESP 16
--- NOTE | 2023-11-11 12:59 | HO.PSYCHPN ---
Subjective Subjective Date of Service: 11/11/23 Reason For Visit: Gen Anxiety D/O Unspec Psychosis Subjective Notes: Conditional Voluntary and 3 Day Healthcare Proxy: Yes Guardianship: No Medical Problems Affecting Mental Status: No Interim History: Pt seen, discussed in team meeting. Three day notice to 11/12. Pt continues to decline team contact with parents, OP MD and parents claims attorney. Pt reports his father visited last evening and it was difficult . He discussed parents having difficulty accepting his adulthood and being the parents of an adult. He acknowledges their concern for him and is considering further treatment as he believes parents feel strongly about this. I am taking time to think about my part in this. I am considering their point of view. States he will continue discussion with family today. He does believe his mother to be reactive and having difficulty accepting that he is wanting to manage his health by making his own decisions. Mother has informed Amber Del Castillo that father will visit pt again today. Discussed with pt that in moving forward team would be available to assist him in any treatment he would participate in. Medication Compliance: No Side effects from medications: No Attending Groups: No Review of Systems Acute medical concerns: No Medical Review of Systems: unchanged Review of Systems Review of Systems Yes all other systems are reviewed and are negative (denies sx. declines eval) Mental Status Exam Mental Status Exam Patient Appearance: Appropriate Patient Orientation: Person, Place, Time and Situation Level of Consciousness: Alert Patient Behavior: Talkative and Good Eye Contact Mood Description: Constricted and Anxious Affect Description: Constricted Patient Cognition Impaired: No Ability to Follow Directions: Good Speech Pattern: Spontaneous Speech Memory Description: Intact Hallucinations: None Delusions: Not Present Thought Process: Intact and Goal Oriented Thought Content: positive for Intact and positive for Goal Oriented Depressive Symptoms: Increased Anxiety and Thoughts of /Suicide (denies) Judgement: Good Diagnostics Vital Signs (24Hr): Vital Signs - 24 hr 11/10/23 19:53 11/11/23 09:00 Respiratory Rate 18 16 BMI result Body Mass Index 21.4 Labs 11/04/23 18:53 Medications Medications Current Medications Acetaminophen (Acetaminophen 325 Mg Tablet) 650 mg PO Q6H PRN PRN Reason: Headache/Pain Mild Scale (1-3) Al Hydroxide/Mg Hydroxide (Magnesium Hydrox/Alum Hydrox 30 Ml Oral.Susp) 30 ml PO Q6H PRN PRN Reason: Heartburn/Nausea Benzocaine (Benzocaine 20 % Oral Gel 9 Gm Tube) 1 appl MUCOUS MEM QID PRN; Protocol PRN Reason: Mouth Sore Pain Hydroxyzine HCl (Hydroxyzine Hcl 25 Mg Tablet) 25 mg PO Q6H PRN PRN Reason: Anxiety Magnesium Hydroxide (Milk Of Magnesia 30 Ml Oral.Susp) 30 ml PO DAILY PRN PRN Reason: Constipation Nicotine (Nicotine 21 Mg Patch.Td24) 21 mg TRANSDERMA DAILY PRN PRN Reason: smoking cessation Nicotine Polacrilex (Nicotine Polacrilex 2 Mg Gum) 4 mg BUCCAL Q2H PRN PRN Reason: Nicotine Cravings Last Admin: 11/05/23 00:52 Dose: 4 mg Quetiapine Fumarate (Quetiapine Fumarate 50 Mg Tablet) 50 mg PO BEDTIME [facility] Last Admin: 11/10/23 21:27 Dose: Not Given Quetiapine Fumarate (Quetiapine Fumarate 25 Mg Tablet) 25 mg PO BID PRN PRN Reason: Anxiety Trazodone HCl (Trazodone Hcl 50 Mg Tablet) 50 mg PO BEDTIME MRX1 PRN PRN Reason: Insomnia Venlafaxine HCl (Venlafaxine Hcl Er 37.5 Mg Cap.Er.24h) 37.5 mg PO DAILY [facility] Last Admin: 11/11/23 09:32 Dose: Not Given Allergies Allergies Allergy/AdvReac Type Severity Reaction Status Date / Time diphenhydramine Allergy Unknown Verified 11/05/23 02:05 lorazepam Allergy Unknown Verified 11/05/23 02:05 metoclopramide Allergy Unknown Verified 11/05/23 02:05 ondansetron Allergy Unknown Verified 11/05/23 02:05 Assessment & Plan Assessment & Plan (1) Severe recurrent major depression w/psychotic features, mood-congruent: Status: Acute Code(s): F33.3 - Major depressive disorder, recurrent, severe with psychotic symptoms (2) Anorexia: Status: Acute Code(s): R63.0 - Anorexia Plan 23 yo male, hx of anorexia, cluster B personality disorder, concussion, FTT, Depression with psychosis. Struggling to eat with mood lability, SI, aggressive agitation prior to admission. Plan: Collateral contacts Venlafaxine 37.5 mg daily Olanzapine 5 mg bid prn Intake and Output Full milieu. 11/11/23 TDN to 11/12/23. Patient educated on: therapeutic strategies Informed Consent: understands and further education needed Reason for continued inpatient stay Substantial Risk for: rapid decompensation Time Spent With Patient Time: Total time managing care of this patient today ____ minutes.
[2023-11-11 20:25] VITALS: BP 135/81; PULSE 102; RESP 16; TEMP 36.9; O2SAT 100
--- NOTE | 2023-11-12 01:04 | PC.NURSE ---
Pt's mother, Brittany James called at 1550 asking to check on how her son is doing. Pt's mother believes that pt is going to be discharged too early because he is a danger to himself and others. She said that while she and pt's father support pt's treatment and stabilization, pt is not able to return to their home. She spoke at length about incidents of aggression, yelling and screaming as well as property destruction in the family home. Pt's mother said pt has reported to them that he has a extremely sensitive sense of smell and becomes very agitated when he experiences disagreeable odors. Pt's mother spoke to this keno writer/runner of pt texting her repeatedly from his cellphone while he was in the ED on his first night. Pt's mother stated pt had at that time made repeated threats on the life of a female pt in the ED that pt had found triggering. Pt's mother spoke of having a temporary guardianship of pt 4 years ago, during which time pt spent some time on a feeding tube r/t eating d/o. She added that pt had gallbladder removed in 2019. Pt's mother stated pt has been on a community [place] in the past and that he improved while on meds. Pt's mother said prior to this hospitalization pt had aggred to start taking Seroquel and Effexor. Pt continues to refuse scheduled medications at this time.
[2023-11-12 07:00] VITALS: BMI 21.9
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
[2023-11-12 19:30] VITALS: BP 137/74; PULSE 104; RESP 16; TEMP 36.8; O2SAT 97
[2023-11-13 08:35] VITALS: RESP 18
--- NOTE | 2023-11-13 22:26 | P.PNPSI_ITS ---
Subjective Subjective Date of Service: 11/13/23 Reason For Visit: Gen Anxiety D/O Unspec Psychosis Subjective Notes: Qureshi Warning, Conditional Voluntary and 3 Day Healthcare Proxy: No Interim History: The patient has been eating he is alert cooperative no bizarre behavior no noted hypersensitivity reactions to food or odors like has been recently reported home denies SI some bizarre thoughts continues with preoccupation that he has akathisia with no symptoms noted or tardive dyskinesia stating his body is taken over times and none of this behavior symptoms are observed and patient has not been agreeing with his outpatient neuro psychiatrist who feels the patient needs to be treated with low-dose antipsychotics and antidepressants and had done markedly well with this in the past. He does not have a current therapist or psychiatrist he is stating that he is currently agreeable to low-dose amitriptyline which he is taken previously asking for low-dose venlafaxine and Seroquel. They are absolutely no symptoms of akathisia tardive dyskinesia or dystonia noted Mental Status Exam Mental Status Exam Patient Appearance: Appropriate Patient Orientation: Person, Place, Time and Situation Level of Consciousness: Alert Patient Behavior: Talkative and Good Eye Contact Mood Description: Constricted and Anxious Affect Description: Constricted Patient Cognition Impaired: No Ability to Follow Directions: Good Speech Pattern: Spontaneous Speech Memory Description: Intact Hallucinations: None Thought Process: Intact and Goal Oriented Thought Content: positive for Intact and positive for Goal Oriented Depressive Symptoms: Increased Anxiety and Diff. Making Decisions Judgement: Poor Judgement and Insight: Patient has difficulty accepting that his illness is primarily psychiatric focused on changed after he took 1 dose Reglan reported periods agitation thoughts at times that he been possessed by demons because he did not have control of his body not currently experiencing any those symptoms were thoughts but continues to show no insight into having psychiatric difficulties and benefitting from psychiatric medication. On the other hand he is not showing harm to self or others and is maintaining food and fluids Diagnostics Vital Signs (24Hr): Vital Signs - 24 hr 11/13/23 08:35 Respiratory Rate 18 BMI result Body Mass Index 21.9 Labs 11/04/23 18:53 Medications Medications Current Medications Acetaminophen (Acetaminophen 325 Mg Tablet) 650 mg PO Q6H PRN PRN Reason: Headache/Pain Mild Scale (1-3) Al Hydroxide/Mg Hydroxide (Magnesium Hydrox/Alum Hydrox 30 Ml Oral.Susp) 30 ml PO Q6H PRN PRN Reason: Heartburn/Nausea Benzocaine (Benzocaine 20 % Oral Gel 9 Gm Tube) 1 appl MUCOUS MEM QID PRN; Protocol PRN Reason: Mouth Sore Pain Hydroxyzine HCl (Hydroxyzine Hcl 25 Mg Tablet) 25 mg PO Q6H PRN PRN Reason: Anxiety Magnesium Hydroxide (Milk Of Magnesia 30 Ml Oral.Susp) 30 ml PO DAILY PRN PRN Reason: Constipation Nicotine (Nicotine 21 Mg Patch.Td24) 21 mg TRANSDERMA DAILY PRN PRN Reason: smoking cessation Nicotine Polacrilex (Nicotine Polacrilex 2 Mg Gum) 4 mg BUCCAL Q2H PRN PRN Reason: Nicotine Cravings Last Admin: 11/05/23 00:52 Dose: 4 mg Quetiapine Fumarate (Quetiapine Fumarate 25 Mg Tablet) 25 mg PO BID PRN PRN Reason: Anxiety Quetiapine Fumarate (Quetiapine Fumarate 25 Mg Tablet) 25 mg PO BEDTIME [facility] Trazodone HCl (Trazodone Hcl 50 Mg Tablet) 50 mg PO BEDTIME MRX1 PRN PRN Reason: Insomnia Venlafaxine HCl (Venlafaxine Hcl Er 37.5 Mg Cap.Er.24h) 37.5 mg PO DAILY [facility] Last Admin: 11/13/23 08:37 Dose: Not Given Allergies Allergies Allergy/AdvReac Type Severity Reaction Status Date / Time diphenhydramine Allergy Unknown Verified 11/05/23 02:05 lorazepam Allergy Unknown Verified 11/05/23 02:05 metoclopramide Allergy Unknown Verified 11/05/23 02:05 ondansetron Allergy Unknown Verified 11/05/23 02:05 Assessment & Plan Assessment & Plan (1) Severe recurrent major depression w/psychotic features, mood-congruent: Status: Acute Code(s): F33.3 - Major depressive disorder, recurrent, severe with psychotic symptoms (2) Anorexia: Status: Acute Code(s): R63.0 - Anorexia Plan 23 yo male, hx of anorexia, cluster B personality disorder, concussion, FTT, Depression with psychosis. Struggling to eat with mood lability, SI, aggressive agitation prior to admission. Plan: Collateral contacts Venlafaxine 37.5 mg daily Olanzapine 5 mg bid prn Intake and Output Full milieu. 11/11/23 TDN to 11/12/23. 11/12/2023 The patient appears to have had a relapse and psychotic symptoms over the past number of months and has not engaged in outpatient treatment his psychiatrist and neurologist Dr. Connelly. His anxiety irrational thinking in psychotic process prevented him from treatment he has had long periods with bizarre behavior related to irrational thoughts regarding smells eating and drinking and recent intrusive thoughts that he would be better off concerns regarding demons. After much encouragement the patient did agree to retract his 3 day encourage medication trial and a structured discharge plan with treatment given his severe instability and threats to self when not in a highly structured setting encourage SNRI low-dose and antipsychotic will try and coordinate care with Dr. Connelly who he is now agreeing to let us speak to Patient understands there is still consideration of civil commitment but he is agreeable to staying voluntarily and reconsidering medication treatment and coordinating with outpatient provider 11/13/2023 Case reviewed extensively with patient's outpatient psychiatrist Dr. Vel Connelly is primarily a movement disorder neurologist and patient has not been accepting treatment with medication Dr. Connelly does feel he would benefit and did benefit in the past from antidepressant antipsychotic medication. Parents appear to be having difficulties understanding the limitations civil commitment trying to get patient to accept outpatient treatment he did state he would try Seroquel and venlafaxine asked for low-dose amitriptyline which she stated helped him in the past. Monitor for adverse effects encouraged treatment and encourage outpatient treatment continue to assess for dangerousness to self but does not show any acute symptoms at this time Patient educated on: diagnosis, medication risk/benefits and therapeutic strategies Informed Consent: further education needed Reason for continued inpatient stay Substantial Risk for: inability to function and rapid decompensation Time Spent With Patient Time: Total time managing care of this patient today ___60_ minutes. Including extensive discussion with Dr. Connelly from [facility]
[2023-11-14 10:03] VITALS: RESP 20
--- NOTE | 2023-11-14 10:11 | P.PNPSI_ITS ---
Subjective Subjective Date of Service: 11/14/23 Reason For Visit: Gen Anxiety D/O Unspec Psychosis Interim History: met With patient; discussed with team Refused meds; refused vitals; difficult with which to engage, offering little and not wanting to discuss much. Macerator Operator approached and offered to discuss medications as he shared ambivalence about it with staff. Patient politely declined and said that this time does not want to discuss them Mental Status Exam Mental Status Exam Patient Appearance: Appropriate Patient Orientation: Person, Place, Time and Situation Level of Consciousness: Alert Patient Behavior: Appropriate, Guarded and Good Eye Contact Mood Description: Constricted Affect Description: Constricted Patient Cognition Impaired: No Ability to Follow Directions: Good Speech Pattern: Clear and Spontaneous Speech Memory Description: Intact Hallucinations: None Delusions: Not Present (None recently expressed) Thought Process: Intact and Goal Oriented Thought Content: positive for Intact (No SI/HI) and positive for Goal Oriented Depressive Symptoms: Increased Anxiety and Diff. Making Decisions Judgement: Poor Judgement and Insight: Patient has difficulty accepting that his illness is primarily psychiatric focused on changed after he took 1 dose Reglan reported periods agitation thoughts at times that he been possessed by demons because he did not have control of his body not currently experiencing any those symptoms were thoughts but continues to show no insight into having psychiatric difficulties and benefitting from psychiatric medication. On the other hand he is not showing harm to self or others and is maintaining food and fluids Diagnostics Vital Signs (24Hr): Vital Signs - 24 hr 11/14/23 10:03 Respiratory Rate 20 BMI result Body Mass Index 21.9 Labs 11/04/23 18:53 Medications Medications Current Medications Acetaminophen (Acetaminophen 325 Mg Tablet) 650 mg PO Q6H PRN PRN Reason: Headache/Pain Mild Scale (1-3) Al Hydroxide/Mg Hydroxide (Magnesium Hydrox/Alum Hydrox 30 Ml Oral.Susp) 30 ml PO Q6H PRN PRN Reason: Heartburn/Nausea Benzocaine (Benzocaine 20 % Oral Gel 9 Gm Tube) 1 appl MUCOUS MEM QID PRN; Protocol PRN Reason: Mouth Sore Pain Hydroxyzine HCl (Hydroxyzine Hcl 25 Mg Tablet) 25 mg PO Q6H PRN PRN Reason: Anxiety Magnesium Hydroxide (Milk Of Magnesia 30 Ml Oral.Susp) 30 ml PO DAILY PRN PRN Reason: Constipation Nicotine (Nicotine 21 Mg Patch.Td24) 21 mg TRANSDERMA DAILY PRN PRN Reason: smoking cessation Nicotine Polacrilex (Nicotine Polacrilex 2 Mg Gum) 4 mg BUCCAL Q2H PRN PRN Reason: Nicotine Cravings Last Admin: 11/05/23 00:52 Dose: 4 mg Quetiapine Fumarate (Quetiapine Fumarate 25 Mg Tablet) 25 mg PO BID PRN PRN Reason: Anxiety Quetiapine Fumarate (Quetiapine Fumarate 25 Mg Tablet) 25 mg PO BEDTIME [facility] Last Admin: 11/13/23 22:49 Dose: Not Given Trazodone HCl (Trazodone Hcl 50 Mg Tablet) 50 mg PO BEDTIME MRX1 PRN PRN Reason: Insomnia Venlafaxine HCl (Venlafaxine Hcl Er 37.5 Mg Cap.Er.24h) 37.5 mg PO DAILY [facility] Last Admin: 11/14/23 08:26 Dose: Not Given Allergies Allergies Allergy/AdvReac Type Severity Reaction Status Date / Time diphenhydramine Allergy Unknown Verified 11/05/23 02:05 lorazepam Allergy Unknown Verified 11/05/23 02:05 metoclopramide Allergy Unknown Verified 11/05/23 02:05 ondansetron Allergy Unknown Verified 11/05/23 02:05 Assessment & Plan Assessment & Plan (1) Severe recurrent major depression w/psychotic features, mood-congruent: Status: Acute Code(s): F33.3 - Major depressive disorder, recurrent, severe with psychotic symptoms (2) Anorexia: Status: Acute Code(s): R63.0 - Anorexia Plan 23 yo male, hx of anorexia, cluster B personality disorder, concussion, FTT, Depression with psychosis. Struggling to eat with mood lability, SI, aggressive agitation prior to admission. Plan: Collateral contacts Venlafaxine 37.5 mg daily Olanzapine 5 mg bid prn Intake and Output Full milieu. 11/11/23 TDN to 11/12/23. 11/12/2023 The patient appears to have had a relapse and psychotic symptoms over the past number of months and has not engaged in outpatient treatment his psychiatrist and neurologist Dr. Connelly. His anxiety irrational thinking in psychotic process prevented him from treatment he has had long periods with bizarre behavior related to irrational thoughts regarding smells eating and drinking and recent intrusive thoughts that he would be better off concerns regarding demons. After much encouragement the patient did agree to retract his 3 day encourage medication trial and a structured discharge plan with treatment given his severe instability and threats to self when not in a highly structured setting encourage SNRI low-dose and antipsychotic will try and coordinate care with Dr. Connelly who he is now agreeing to let us speak to Patient understands there is still consideration of civil commitment but he is agreeable to staying voluntarily and reconsidering medication treatment and coordinating with outpatient provider 11/13/2023 Case reviewed extensively with patient's outpatient psychiatrist Dr. Vel Connelly is primarily a movement disorder neurologist and patient has not been accepting treatment with medication Dr. Connelly does feel he would benefit and did benefit in the past from antidepressant antipsychotic medication. Parents appear to be having difficulties understanding the limitations civil commitment trying to get patient to accept outpatient treatment he did state he would try Seroquel and venlafaxine asked for low-dose amitriptyline which she stated helped him in the past. Monitor for adverse effects encouraged treatment and encourage outpatient treatment continue to assess for dangerousness to self but does not show any acute symptoms at this time 11/14 calm, keeping to himself, difficult with which to engage, not want to talk much about treatment. Politely Refusing labs and medications. Patient educated on: medication risk/benefits Informed Consent: further education needed Reason for continued inpatient stay Substantial Risk for: med/psych decompensation Time Spent With Patient Time: Total time managing care of this patient today ____ minutes.
[2023-11-14 16:09] VITALS: RESP 16
[2023-11-15 08:05] VITALS: RESP 16
--- NOTE | 2023-11-15 12:53 | HO.PSYCHPN ---
Subjective Subjective Date of Service: 11/15/23 Reason For Visit: Gen Anxiety D/O Unspec Psychosis Interim History: Met with patient; discussed with team; reviewed chart Patient a little more open today talk about medication. He said used to be on Seroquel about 5 years ago and was on about 700mg; he said is current dose to low, but if screen writer willing to increase, he'll start taking it. Agreed to start tonight at 100mg. Mental Status Exam Mental Status Exam Patient Appearance: Appropriate Patient Orientation: Person, Place, Time and Situation Level of Consciousness: Alert Patient Behavior: Appropriate, Guarded and Good Eye Contact Mood Description: Constricted Affect Description: Constricted Patient Cognition Impaired: No Ability to Follow Directions: Good Speech Pattern: Clear and Spontaneous Speech Memory Description: Intact Hallucinations: None Delusions: Not Present (None recently expressed) Thought Process: Intact and Goal Oriented Thought Content: positive for Intact (No SI/HI) and positive for Goal Oriented Depressive Symptoms: Increased Anxiety and Diff. Making Decisions Judgement: Poor Judgement and Insight: Patient has difficulty accepting that his illness is primarily psychiatric focused on changed after he took 1 dose Ralph reported periods agitation thoughts at times that he been possessed by demons because he did not have control of his body not currently experiencing any those symptoms were thoughts but continues to show no insight into having psychiatric difficulties and benefitting from psychiatric medication. On the other hand he is not showing harm to self or others and is maintaining food and fluids Diagnostics Vital Signs (24Hr): Vital Signs - 24 hr 11/14/23 16:09 11/15/23 08:05 Respiratory Rate 16 16 BMI result Body Mass Index 21.9 Labs 11/04/23 18:53 Medications Medications Current Medications Acetaminophen (Acetaminophen 325 Mg Tablet) 650 mg PO Q6H PRN PRN Reason: Headache/Pain Mild Scale (1-3) Al Hydroxide/Mg Hydroxide (Magnesium Hydrox/Alum Hydrox 30 Ml Oral.Susp) 30 ml PO Q6H PRN PRN Reason: Heartburn/Nausea Benzocaine (Benzocaine 20 % Oral Gel 9 Gm Tube) 1 appl MUCOUS MEM QID PRN; Protocol PRN Reason: Mouth Sore Pain Hydroxyzine HCl (Hydroxyzine Hcl 25 Mg Tablet) 25 mg PO Q6H PRN PRN Reason: Anxiety Magnesium Hydroxide (Milk Of Magnesia 30 Ml Oral.Susp) 30 ml PO DAILY PRN PRN Reason: Constipation Nicotine (Nicotine 21 Mg Patch.Td24) 21 mg TRANSDERMA DAILY PRN PRN Reason: smoking cessation Nicotine Polacrilex (Nicotine Polacrilex 2 Mg Gum) 4 mg BUCCAL Q2H PRN PRN Reason: Nicotine Cravings Last Admin: 11/05/23 00:52 Dose: 4 mg Quetiapine Fumarate (Quetiapine Fumarate 25 Mg Tablet) 25 mg PO BID PRN PRN Reason: Anxiety Quetiapine Fumarate (Quetiapine Fumarate 25 Mg Tablet) 25 mg PO BEDTIME [facility] Last Admin: 11/14/23 21:16 Dose: Not Given Trazodone HCl (Trazodone Hcl 50 Mg Tablet) 50 mg PO BEDTIME MRX1 PRN PRN Reason: Insomnia Venlafaxine HCl (Venlafaxine Hcl Er 37.5 Mg Cap.Er.24h) 37.5 mg PO DAILY [facility] [place] Last Admin: 11/15/23 08:36 Dose: Not Given Allergies Allergies Allergy/AdvReac Type Severity Reaction Status Date / Time diphenhydramine Allergy Unknown Verified 11/05/23 02:05 lorazepam Allergy Unknown Verified 11/05/23 02:05 metoclopramide Allergy Unknown Verified 11/05/23 02:05 ondansetron Allergy Unknown Verified 11/05/23 02:05 Assessment & Plan Assessment & Plan (1) Severe recurrent major depression w/psychotic features, mood-congruent: Status: Acute Code(s): F33.3 - Major depressive disorder, recurrent, severe with psychotic symptoms (2) Anorexia: Status: Acute Code(s): R63.0 - Anorexia Plan 23 yo male, hx of anorexia, cluster B personality disorder, concussion, FTT, Depression with psychosis. Struggling to eat with mood lability, SI, aggressive agitation prior to admission. hospital course: 11/11/23 TDN to 11/12/23. 11/12/2023 The patient appears to have had a relapse and psychotic symptoms over the past number of months and has not engaged in outpatient treatment his psychiatrist and neurologist Dr. Connelly. His anxiety irrational thinking in psychotic process prevented him from treatment he has had long periods with bizarre behavior related to irrational thoughts regarding smells eating and drinking and recent intrusive thoughts that he would be better off concerns regarding demons. After much encouragement the patient did agree to retract his 3 day encourage medication trial and a structured discharge plan with treatment given his severe instability and threats to self when not in a highly structured setting encourage SNRI low-dose and antipsychotic will try and coordinate care with Dr. Connelly who he is now agreeing to let us speak to Patient understands there is still consideration of civil commitment but he is agreeable to staying voluntarily and reconsidering medication treatment and coordinating with outpatient provider 11/13/2023 Case reviewed extensively with patient's outpatient psychiatrist Dr. Vel Connelly is primarily a movement disorder neurologist and patient has not been accepting treatment with medication Dr. Connelly does feel he would benefit and did benefit in the past from antidepressant antipsychotic medication. Parents appear to be having difficulties understanding the limitations civil commitment trying to get patient to accept outpatient treatment he did state he would try Seroquel and venlafaxine asked for low-dose amitriptyline which she stated helped him in the past. Monitor for adverse effects encouraged treatment and encourage outpatient treatment continue to assess for dangerousness to self but does not show any acute symptoms at this time 11/14 calm, keeping to himself, difficult with which to engage, not want to talk much about treatment. Politely Refusing labs and medications. 11/15 Patient a little more open today talk about medication. He said used to be on Seroquel about 5 years ago and was on about 700mg; he said is current dose to low, but if screen writer willing to increase, he'll start taking it. Agreed to start tonight at 100mg. Plan: Collateral contacts START Seroquel 100mg qhs Venlafaxine 37.5 mg daily Olanzapine 5 mg bid prn Intake and Output Full milieu. Patient educated on: diagnosis and medication risk/benefits Informed Consent: understands and further education needed Reason for continued inpatient stay Substantial Risk for: inability to function Time Spent With Patient Time: Total time managing care of this patient today ____ minutes.
--- NOTE | 2023-11-16 10:17 | P.PNPSI_ITS ---
Subjective Subjective Date of Service: 11/16/23 Reason For Visit: Gen Anxiety D/O Unspec Psychosis Subjective Notes: Conditional Voluntary and 3 Day Healthcare Proxy: No Guardianship: No Medical Problems Affecting Mental Status: No Interim History: Pt visable in milieu, Eating with peers. Met briefly with cruz and Amber Del Castillo LCSW. Discussed Section 7, vs voluntary treatment. Pt not taking medications yet. States he will, yet is not able to follow through Review with Dr. Palumbo, Dr. Lucio. Given history and presentation, Section 7 will be filed on 11/17/23. Message from pt's mother- family has filed for community guardianship. Medication Compliance: No Side effects from medications: No Attending Groups: No Review of Systems Acute medical concerns: No Medical Review of Systems: unchanged Review of Systems Review of Systems Yes all other systems are reviewed and are negative (denies) Mental Status Exam Mental Status Exam Patient Appearance: Appropriate Patient Orientation: Person, Place, Time and Situation Level of Consciousness: Alert Patient Behavior: Talkative and Good Eye Contact Mood Description: Anxious Affect Description: Anxious Patient Cognition Impaired: No Ability to Follow Directions: Good Speech Pattern: Spontaneous Speech Memory Description: Intact and Episodic Impaired Hallucinations: None Delusions: Paranoid Ideation and Present Perceptual Disturbances: Depersonalization and Derealization Thought Process: Distracted and Rumination Thought Content: positive for Circumstantial and positive for Perseveration Depressive Symptoms: Increased Anxiety and Diff. Making Decisions Judgement: Poor Diagnostics Vital Signs (24Hr): BMI result Body Mass Index 21.9 Labs 11/04/23 18:53 Medications Medications Current Medications Acetaminophen (Acetaminophen 325 Mg Tablet) 650 mg PO Q6H PRN PRN Reason: Headache/Pain Mild Scale (1-3) Al Hydroxide/Mg Hydroxide (Magnesium Hydrox/Alum Hydrox 30 Ml Oral.Susp) 30 ml PO Q6H PRN PRN Reason: Heartburn/Nausea Benzocaine (Benzocaine 20 % Oral Gel 9 Gm Tube) 1 appl MUCOUS MEM QID PRN; Protocol PRN Reason: Mouth Sore Pain Hydroxyzine HCl (Hydroxyzine Hcl 25 Mg Tablet) 25 mg PO Q6H PRN PRN Reason: Anxiety Magnesium Hydroxide (Milk Of Magnesia 30 Ml Oral.Susp) 30 ml PO DAILY PRN PRN Reason: Constipation Nicotine (Nicotine 21 Mg Patch.Td24) 21 mg TRANSDERMA DAILY PRN PRN Reason: smoking cessation Nicotine Polacrilex (Nicotine Polacrilex 2 Mg Gum) 4 mg BUCCAL Q2H PRN PRN Reason: Nicotine Cravings Last Admin: 11/05/23 00:52 Dose: 4 mg Quetiapine Fumarate (Quetiapine Fumarate 25 Mg Tablet) 25 mg PO BID PRN PRN Reason: Anxiety Quetiapine Fumarate (Quetiapine Fumarate 100 Mg Tablet) 100 mg PO BEDTIME [facility] Last Admin: 11/16/23 00:20 Dose: Not Given Trazodone HCl (Trazodone Hcl 50 Mg Tablet) 50 mg PO BEDTIME MRX1 PRN PRN Reason: Insomnia Venlafaxine HCl (Venlafaxine Hcl Er 37.5 Mg Cap.Er.24h) 37.5 mg PO DAILY [facility] Last Admin: 11/16/23 10:06 Dose: Not Given Allergies Allergies Allergy/AdvReac Type Severity Reaction Status Date / Time diphenhydramine Allergy Unknown Verified 11/05/23 02:05 lorazepam Allergy Unknown Verified 11/05/23 02:05 metoclopramide Allergy Unknown Verified 11/05/23 02:05 ondansetron Allergy Unknown Verified 11/05/23 02:05 Assessment & Plan Assessment & Plan (1) Severe recurrent major depression w/psychotic features, mood-congruent: Status: Acute Code(s): F33.3 - Major depressive disorder, recurrent, severe with psychotic symptoms (2) Anorexia: Status: Acute Code(s): R63.0 - Anorexia Plan 23 yo male, hx of anorexia, cluster B personality disorder, concussion, FTT, Depression with psychosis. Struggling to eat with mood lability, SI, aggressive agitation prior to admission. hospital course: 11/11/23 TDN to 11/12/23. 11/12/2023 The patient appears to have had a relapse and psychotic symptoms over the past number of months and has not engaged in outpatient treatment his psychiatrist and neurologist Dr. Connelly. His anxiety irrational thinking in psychotic process prevented him from treatment he has had long periods with bizarre behavior related to irrational thoughts regarding smells eating and drinking and recent intrusive thoughts that he would be better off concerns regarding demons. After much encouragement the patient did agree to retract his 3 day encourage medication trial and a structured discharge plan with treatment given his severe instability and threats to self when not in a highly structured setting encourage SNRI low-dose and antipsychotic will try and coordinate care with Dr. Connelly who he is now agreeing to let us speak to Patient understands there is still consideration of civil commitment but he is agreeable to staying voluntarily and reconsidering medication treatment and coordinating with outpatient provider 11/13/2023 Case reviewed extensively with patient's outpatient psychiatrist Dr. Vel Connelly is primarily a movement disorder neurologist and patient has not been accepting treatment with medication Dr. Connelly does feel he would benefit and did benefit in the past from antidepressant antipsychotic medication. Parents appear to be having difficulties understanding the limitations civil commitment trying to get patient to accept outpatient treatment he did state he would try Seroquel and venlafaxine asked for low-dose amitriptyline which she stated helped him in the past. Monitor for adverse effects encouraged treatment and encourage outpatient treatment continue to assess for dangerousness to self but does not show any acute symptoms at this time 11/14 calm, keeping to himself, difficult with which to engage, not want to talk much about treatment. Politely Refusing labs and medications. 11/15 Patient a little more open today talk about medication. He said used to be on Seroquel about 5 years ago and was on about 700mg; he said is current dose to low, but if story writer willing to increase, he'll start taking it. Agreed to start tonight at 100mg. 11/16 Pt talking about Section 7. Considering medicine. Discussed with Dr. Palumbo and Dr. Lucio. Will file Section 7 on 11/17/23 Plan: Collateral contacts START Seroquel 100mg qhs Venlafaxine 37.5 mg daily Olanzapine 5 mg bid prn Intake and Output Full milieu. Patient educated on: therapeutic strategies Informed Consent: further education needed Reason for continued inpatient stay Substantial Risk for: med/psych decompensation Time Spent With Patient Time: Total time managing care of this patient today ____ minutes.
[2023-11-17 08:09] VITALS: RESP 16
--- NOTE | 2023-11-17 13:53 | P.PNPSI_ITS ---
Subjective Subjective Date of Service: 11/17/23 Reason For Visit: Gen Anxiety D/O Unspec Psychosis Subjective Notes: Section 7 Healthcare Proxy: Yes Guardianship: No (parents have begun this process) Medical Problems Affecting Mental Status: No Interim History: Section Seven filed. Met with pt and Dr. Palumbo. Discussed rationale with pt. He is bargaining-wanting to create a treatment plan, but unable to participate in implementation. His difficulty in participation was acknowledged. Parameters of filing reviewed. Pt asked to end the meeting early and rest. Asking appropriate questions. Given time to think and offered to continue to work with him to create a plan of care he can work with. He will consider. Mother notified of filing. Community guardianship paperwork initiated. [place] [facility] [place] Medication Compliance: No Side effects from medications: No Attending Groups: No Review of Systems Acute medical concerns: No Medical Review of Systems: unchanged Review of Systems Review of Systems Yes all other systems are reviewed and are negative (denies) Mental Status Exam Mental Status Exam Patient Appearance: Appropriate Patient Orientation: Person, Place, Time and Situation Level of Consciousness: Alert Patient Behavior: Talkative and Good Eye Contact Mood Description: Anxious Affect Description: Anxious Patient Cognition Impaired: No Ability to Follow Directions: Good Speech Pattern: Spontaneous Speech Memory Description: Intact and Episodic Impaired Hallucinations: None Delusions: Paranoid Ideation and Present Perceptual Disturbances: Depersonalization and Derealization Thought Process: Distracted and Rumination Thought Content: positive for Circumstantial and positive for Perseveration Depressive Symptoms: Increased Anxiety and Diff. Making Decisions Judgement: Poor Diagnostics Vital Signs (24Hr): Vital Signs - 24 hr 11/17/23 08:09 Respiratory Rate 16 BMI result Body Mass Index 21.9 Labs 11/04/23 18:53 Medications Medications Current Medications Acetaminophen (Acetaminophen 325 Mg Tablet) 650 mg PO Q6H PRN PRN Reason: Headache/Pain Mild Scale (1-3) Al Hydroxide/Mg Hydroxide (Magnesium Hydrox/Alum Hydrox 30 Ml Oral.Susp) 30 ml PO Q6H PRN PRN Reason: Heartburn/Nausea Benzocaine (Benzocaine 20 % Oral Gel 9 Gm Tube) 1 appl MUCOUS MEM QID PRN; Protocol PRN Reason: Mouth Sore Pain Hydroxyzine HCl (Hydroxyzine Hcl 25 Mg Tablet) 25 mg PO Q6H PRN PRN Reason: Anxiety Magnesium Hydroxide (Milk Of Magnesia 30 Ml Oral.Susp) 30 ml PO DAILY PRN PRN Reason: Constipation Nicotine (Nicotine 21 Mg Patch.Td24) 21 mg TRANSDERMA DAILY PRN PRN Reason: smoking cessation Nicotine Polacrilex (Nicotine Polacrilex 2 Mg Gum) 4 mg BUCCAL Q2H PRN PRN Reason: Nicotine Cravings Last Admin: 11/05/23 00:52 Dose: 4 mg Quetiapine Fumarate (Quetiapine Fumarate 25 Mg Tablet) 25 mg PO BID PRN PRN Reason: Anxiety Quetiapine Fumarate (Quetiapine Fumarate 100 Mg Tablet) 100 mg PO BEDTIME [facility] Last Admin: 11/16/23 20:00 Dose: Not Given Trazodone HCl (Trazodone Hcl 50 Mg Tablet) 50 mg PO BEDTIME MRX1 PRN PRN Reason: Insomnia Venlafaxine HCl (Venlafaxine Hcl Er 37.5 Mg Cap.Er.24h) 37.5 mg PO DAILY [facility] Last Admin: 11/17/23 08:09 Dose: Not Given Allergies Allergies Allergy/AdvReac Type Severity Reaction Status Date / Time diphenhydramine Allergy Unknown Verified 11/05/23 02:05 lorazepam Allergy Unknown Verified 11/05/23 02:05 metoclopramide Allergy Unknown Verified 11/05/23 02:05 ondansetron Allergy Unknown Verified 11/05/23 02:05 Assessment & Plan Assessment & Plan (1) Severe recurrent major depression w/psychotic features, mood-congruent: Status: Acute Code(s): F33.3 - Major depressive disorder, recurrent, severe with psychotic symptoms (2) Anorexia: Status: Acute Code(s): R63.0 - Anorexia Plan 23 yo male, hx of anorexia, cluster B personality disorder, concussion, FTT, Depression with psychosis. Struggling to eat with mood lability, SI, aggressive agitation prior to admission. hospital course: 11/11/23 TDN to 11/12/23. 11/12/2023 The patient appears to have had a relapse and psychotic symptoms over the past number of months and has not engaged in outpatient treatment his psychiatrist and neurologist Dr. Connelly. His anxiety irrational thinking in psychotic process prevented him from treatment he has had long periods with bizarre behavior related to irrational thoughts regarding smells eating and drinking and recent intrusive thoughts that he would be better off concerns regarding demons. After much encouragement the patient did agree to retract his 3 day encourage medication trial and a structured discharge plan with treatment given his severe instability and threats to self when not in a highly structured setting encourage SNRI low-dose and antipsychotic will try and coordinate care with Dr. Connelly who he is now agreeing to let us speak to Patient understands there is still consideration of civil commitment but he is agreeable to staying voluntarily and reconsidering medication treatment and coordinating with outpatient provider 11/13/2023 Case reviewed extensively with patient's outpatient psychiatrist Dr. Vel Connelly is primarily a movement disorder neurologist and patient has not been accepting treatment with medication Dr. Connelly does feel he would benefit and did benefit in the past from antidepressant antipsychotic medication. Parents appear to be having difficulties understanding the limitations civil commitment trying to get patient to accept outpatient treatment he did state he would try Seroquel and venlafaxine asked for low-dose amitriptyline which she stated helped him in the past. Monitor for adverse effects encouraged treatment and encourage outpatient treatment continue to assess for dangerousness to self but does not show any acute symptoms at this time 11/14 calm, keeping to himself, difficult with which to engage, not want to talk much about treatment. Politely Refusing labs and medications. 11/15 Patient a little more open today talk about medication. He said used to be on Seroquel about 5 years ago and was on about 700mg; he said is current dose to low, but if singer songwriter willing to increase, he'll start taking it. Agreed to start tonight at 100mg. 11/16 Pt talking about Section 7. Considering medicine. Discussed with Dr. Palumbo and Dr. Lucio. Will file Section 7 on 11/17/2311/17 Section Seven filed. Discussed with pt. Encouarged to work with team on his plan of care. Plan: Collateral contacts START Seroquel 100mg qhs Venlafaxine 37.5 mg daily Olanzapine 5 mg bid prn Intake and Output Full milieu. Patient educated on: therapeutic strategies Informed Consent: further education needed Reason for continued inpatient stay Substantial Risk for: rapid decompensation Time Spent With Patient Time: Total time managing care of this patient today ____ minutes.
[2023-11-17 16:41] VITALS: BP 142/86; PULSE 118; RESP 18; TEMP 36.9; O2SAT 98
[2023-11-18 08:16] VITALS: RESP 18
--- NOTE | 2023-11-18 19:05 | P.PNPSI_ITS ---
Subjective Subjective Date of Service: 11/18/23 Reason For Visit: Gen Anxiety D/O Unspec Psychosis Subjective Notes: Section 7 Healthcare Proxy: No Guardianship: No Medical Problems Affecting Mental Status: No Interim History: Met with pt and Dr. Palumbo. Continued discussion of potential treatment planning. Pt reports he has decided to wait regarding medicines until he speaks with his mergers and acquisitions attorney. Review of some history, options for treatment, pt's thinking regarding his previous treatment experiences Discussed experience with Seroquel-had sleep benefit, with 850 mg daily. Review of Chron's, Cholecystectomy. Discussed possible Celiac sx as well. Agreeable to consider nutrition consult. Medication Compliance: No Side effects from medications: No Attending Groups: Intermittent Review of Systems Acute medical concerns: No Medical Review of Systems: unchanged Review of Systems Review of Systems Yes all other systems are reviewed and are negative (denies) Mental Status Exam Mental Status Exam Patient Appearance: Appropriate Patient Orientation: Person, Place, Time and Situation Level of Consciousness: Alert Patient Behavior: Talkative and Good Eye Contact Mood Description: Anxious and Apprehensive Affect Description: Anxious Patient Cognition Impaired: No Ability to Follow Directions: Good Speech Pattern: Spontaneous Speech Memory Description: Intact Hallucinations: None Delusions: Paranoid Ideation and Present Perceptual Disturbances: Depersonalization and Derealization Thought Process: Distracted and Rumination Thought Content: positive for Circumstantial and positive for Perseveration Depressive Symptoms: Increased Anxiety and Diff. Making Decisions Judgement: Poor Diagnostics Vital Signs (24Hr): Vital Signs - 24 hr 11/18/23 08:16 Respiratory Rate 18 BMI result Body Mass Index 21.9 Labs 11/04/23 18:53 Medications Medications Current Medications Acetaminophen (Acetaminophen 325 Mg Tablet) 650 mg PO Q6H PRN PRN Reason: Headache/Pain Mild Scale (1-3) Al Hydroxide/Mg Hydroxide (Magnesium Hydrox/Alum Hydrox 30 Ml Oral.Susp) 30 ml PO Q6H PRN PRN Reason: Heartburn/Nausea Benzocaine (Benzocaine 20 % Oral Gel 9 Gm Tube) 1 appl MUCOUS MEM QID PRN; Protocol PRN Reason: Mouth Sore Pain Hydroxyzine HCl (Hydroxyzine Hcl 25 Mg Tablet) 25 mg PO Q6H PRN PRN Reason: Anxiety Magnesium Hydroxide (Milk Of Magnesia 30 Ml Oral.Susp) 30 ml PO DAILY PRN PRN Reason: Constipation Nicotine (Nicotine 21 Mg Patch.Td24) 21 mg TRANSDERMA DAILY PRN PRN Reason: smoking cessation Nicotine Polacrilex (Nicotine Polacrilex 2 Mg Gum) 4 mg BUCCAL Q2H PRN PRN Reason: Nicotine Cravings Last Admin: 11/05/23 00:52 Dose: 4 mg Quetiapine Fumarate (Quetiapine Fumarate 25 Mg Tablet) 25 mg PO BID PRN PRN Reason: Agitation, Psychosis Quetiapine Fumarate (Quetiapine Fumarate 50 Mg Tablet) 50 mg PO BEDTIME JERALD Trazodone HCl (Trazodone Hcl 50 Mg Tablet) 50 mg PO BEDTIME MRX1 PRN PRN Reason: Insomnia Venlafaxine HCl (Venlafaxine Hcl Er 37.5 Mg Cap.Er.24h) 37.5 mg PO DAILY JERALD Last Admin: 11/18/23 10:38 Dose: Not Given Allergies Allergies Allergy/AdvReac Type Severity Reaction Status Date / Time diphenhydramine Allergy Unknown Verified 11/05/23 02:05 lorazepam Allergy Unknown Verified 11/05/23 02:05 metoclopramide Allergy Unknown Verified 11/05/23 02:05 ondansetron Allergy Unknown Verified 11/05/23 02:05 Assessment & Plan Assessment & Plan (1) Severe recurrent major depression w/psychotic features, mood-congruent: Status: Acute Code(s): F33.3 - Major depressive disorder, recurrent, severe with psychotic symptoms (2) Anorexia: Status: Acute Code(s): R63.0 - Anorexia Plan 23 yo male, hx of anorexia, cluster B personality disorder, concussion, FTT, Depression with psychosis. Struggling to eat with mood lability, SI, aggressive agitation prior to admission. hospital course: 11/11/23 TDN to 11/12/23. 11/12/2023 The patient appears to have had a relapse and psychotic symptoms over the past number of months and has not engaged in outpatient treatment his psychiatrist and neurologist Dr. Connelly. His anxiety irrational thinking in psychotic process prevented him from treatment he has had long periods with bizarre behavior related to irrational thoughts regarding smells eating and drinking and recent intrusive thoughts that he would be better off concerns regarding demons. After much encouragement the patient did agree to retract his 3 day encourage medication trial and a structured discharge plan with treatment given his severe instability and threats to self when not in a highly structured setting encourage SNRI low-dose and antipsychotic will try and coordinate care with Dr. Connelly who he is now agreeing to let us speak to Patient understands there is still consideration of civil commitment but he is agreeable to staying voluntarily and reconsidering medication treatment and coordinating with outpatient provider 11/13/2023 Case reviewed extensively with patient's outpatient psychiatrist Dr. Vel Connelly is primarily a movement disorder neurologist and patient has not been accepting treatment with medication Dr. Connelly does feel he would benefit and did benefit in the past from antidepressant antipsychotic medication. Parents appear to be having difficulties understanding the limitations civil commitment trying to get patient to accept outpatient treatment he did state he would try Seroquel and venlafaxine asked for low-dose amitriptyline which she stated helped him in the past. Monitor for adverse effects encouraged treatment and encourage outpatient treatment continue to assess for dangerousness to self but does not show any acute symptoms at this time 11/14 calm, keeping to himself, difficult with which to engage, not want to talk much about treatment. Politely Refusing labs and medications. 11/15 Patient a little more open today talk about medication. He said used to be on Seroquel about 5 years ago and was on about 700mg; he said is current dose to low, but if health science writer willing to increase, he'll start taking it. Agreed to start tonight at 100mg. 11/16 Pt talking about Section 7. Considering medicine. Discussed with Dr. Palumbo and Dr. Lucio. Will file Section 7 on 11/17/2311/17 Section Seven filed. Discussed with pt. Encouarged to work with team on his plan of care. 11/18/23: Continue to encourage pt to work with team on his plan of care. Plan: Collateral contacts START Seroquel 100mg qhs Venlafaxine 37.5 mg daily Olanzapine 5 mg bid prn Intake and Output Full milieu. Patient educated on: therapeutic strategies Informed Consent: understands and further education needed Reason for continued inpatient stay Substantial Risk for: rapid decompensation Time Spent With Patient Time: Total time managing care of this patient today ____ minutes.
[2023-11-19 09:26] VITALS: RESP 16; TEMP 36.3
[2023-11-19 10:45] VITALS: BMI 24.1
--- NOTE | 2023-11-19 15:27 | P.PNPSI_ITS ---
Subjective Subjective Reason For Visit: Gen Anxiety D/O Unspec Psychosis Diagnostics Vital Signs (24Hr): Vital Signs - 24 hr 11/19/23 09:26 Temperature 97.3 F Respiratory Rate 16 BMI result Body Mass Index 24.1 Labs 11/04/23 18:53 Medications Medications Current Medications Acetaminophen (Acetaminophen 325 Mg Tablet) 650 mg PO Q6H PRN PRN Reason: Headache/Pain Mild Scale (1-3) Al Hydroxide/Mg Hydroxide (Magnesium Hydrox/Alum Hydrox 30 Ml Oral.Susp) 30 ml PO Q6H PRN PRN Reason: Heartburn/Nausea Benzocaine (Benzocaine 20 % Oral Gel 9 Gm Tube) 1 appl MUCOUS MEM QID PRN; Protocol PRN Reason: Mouth Sore Pain Hydroxyzine HCl (Hydroxyzine Hcl 25 Mg Tablet) 25 mg PO Q6H PRN PRN Reason: Anxiety Magnesium Hydroxide (Milk Of Magnesia 30 Ml Oral.Susp) 30 ml PO DAILY PRN PRN Reason: Constipation Nicotine (Nicotine 21 Mg Patch.Td24) 21 mg TRANSDERMA DAILY PRN PRN Reason: smoking cessation Nicotine Polacrilex (Nicotine Polacrilex 2 Mg Gum) 4 mg BUCCAL Q2H PRN PRN Reason: Nicotine Cravings Last Admin: 11/05/23 00:52 Dose: 4 mg Quetiapine Fumarate (Quetiapine Fumarate 25 Mg Tablet) 25 mg PO BID PRN PRN Reason: Agitation, Psychosis Quetiapine Fumarate (Quetiapine Fumarate 50 Mg Tablet) 50 mg PO BEDTIME [facility] Last Admin: 11/18/23 20:08 Dose: Not Given Trazodone HCl (Trazodone Hcl 50 Mg Tablet) 50 mg PO BEDTIME MRX1 PRN PRN Reason: Insomnia Venlafaxine HCl (Venlafaxine Hcl Er 37.5 Mg Cap.Er.24h) 37.5 mg PO DAILY [facility] Last Admin: 11/19/23 09:37 Dose: Not Given Allergies Allergies Allergy/AdvReac Type Severity Reaction Status Date / Time diphenhydramine Allergy Unknown Verified 11/05/23 02:05 lorazepam Allergy Unknown Verified 11/05/23 02:05 metoclopramide Allergy Unknown Verified 11/05/23 02:05 ondansetron Allergy Unknown Verified 11/05/23 02:05 Assessment & Plan Assessment & Plan (1) Severe recurrent major depression w/psychotic features, mood-congruent: Status: Acute Code(s): F33.3 - Major depressive disorder, recurrent, severe with psychotic symptoms (2) Anorexia: Status: Acute Code(s): R63.0 - Anorexia Plan 23 yo male, hx of anorexia, cluster B personality disorder, concussion, FTT, Depression with psychosis. Struggling to eat with mood lability, SI, aggressive agitation prior to admission. hospital course: 11/11/23 TDN to 11/12/23. 11/12/2023 The patient appears to have had a relapse and psychotic symptoms over the past number of months and has not engaged in outpatient treatment his psychiatrist and neurologist Dr. Connelly. His anxiety irrational thinking in psychotic process prevented him from treatment he has had long periods with bizarre behavior related to irrational thoughts regarding smells eating and drinking and recent intrusive thoughts that he would be better off concerns regarding demons. After much encouragement the patient did agree to retract his 3 day encourage medication trial and a structured discharge plan with treatment given his severe instability and threats to self when not in a highly structured setting encourage SNRI low-dose and antipsychotic will try and coordinate care with Dr. Connelly who he is now agreeing to let us speak to Patient understands there is still consideration of civil commitment but he is agreeable to staying voluntarily and reconsidering medication treatment and coordinating with outpatient provider 11/13/2023 Case reviewed extensively with patient's outpatient psychiatrist Dr. Vel Connelly is primarily a movement disorder neurologist and patient has not been accepting treatment with medication Dr. Connelly does feel he would benefit and did benefit in the past from antidepressant antipsychotic medication. Parents appear to be having difficulties understanding the limitations civil commitment trying to get patient to accept outpatient treatment he did state he would try Seroquel and venlafaxine asked for low-dose amitriptyline which she stated helped him in the past. Monitor for adverse effects encouraged treatment and encourage outpatient treatment continue to assess for dangerousness to self but does not show any acute symptoms at this time 11/14 calm, keeping to himself, difficult with which to engage, not want to talk much about treatment. Politely Refusing labs and medications. 11/15 Patient a little more open today talk about medication. He said used to be on Seroquel about 5 years ago and was on about 700mg; he said is current dose to low, but if fiction and nonfiction writer prose willing to increase, he'll start taking it. Agreed to start tonight at 100mg. 11/16 Pt talking about Section 7. Considering medicine. Discussed with Dr. Palumbo and Dr. Lucio. Will file Section 7 on 11/17/2311/17 Section Seven filed. Discussed with pt. Encouarged to work with team on his plan of care. Plan: Collateral contacts START Seroquel 100mg qhs Venlafaxine 37.5 mg daily Olanzapine 5 mg bid prn Intake and Output Full milieu. Time Spent With Patient Time: Total time managing care of this patient today ____ minutes.
--- NOTE | 2023-11-19 22:21 | HO.PSYCHPN ---
Subjective Subjective Date of Service: 11/19/23 Reason For Visit: Gen Anxiety D/O Unspec Psychosis Subjective Notes: Qureshi Warning, Conditional Voluntary and 3 Day Interim History: Patient has gained significant amount of weight since admission. It is clear that he is significant symptoms prior to admission including thoughts and wishes that he was overly sensitive to smells becoming severely agitated thinking the person in the emergency room next to him had taken a Reglan and somehow he was going to be poisoned by it. Patient more forthcoming understands that he suffers significant distress is able to contain it in controlled setting able to state he was dependent on his parents but also that they were triggering. He has not sure how he would function on the outside understands he has significant symptoms relied on his parents in the past stated had been in treatment with Dr. Hallman in [place]. Patient has no strategies for dealing with any of symptoms no matter how severe will listen to information regarding medication and treatment strategies remains unwilling to commit to any form of treatment Mental Status Exam Mental Status Exam Patient Appearance: Appropriate Patient Orientation: Person, Place, Time and Situation Level of Consciousness: Alert Patient Behavior: Talkative and Good Eye Contact Mood Description: Anxious and Apprehensive Affect Description: Anxious Patient Cognition Impaired: No Ability to Follow Directions: Good Speech Pattern: Spontaneous Speech Memory Description: Intact Hallucinations: None Delusions: Paranoid Ideation and Present Perceptual Disturbances: Depersonalization and Derealization Thought Process: Distracted and Rumination Thought Content: positive for Circumstantial and positive for Perseveration Depressive Symptoms: Increased Anxiety and Diff. Making Decisions Judgement: Poor Judgement and Insight: Patient cooperative agrees that he had significant symptoms prior to admission with intense hopelessness helplessness and thoughts wishes that he would be difficulty eating taking care of himself highly dependent on his parents admits that he thought he was contaminated by another patient's Reglan in the emergency room and thoughts at times that he or they might have been possessed by the devil but denies currently although admits to symptoms that are significantly affecting his life can not explain why he initially states he wants medication and then refused to take it can not explain why he would not see therapist or psychiatrist in the community he seems somewhat more open to that now Diagnostics Vital Signs (24Hr): Vital Signs - 24 hr 11/19/23 09:26 Temperature 97.3 F Respiratory Rate 16 BMI result Body Mass Index 24.1 Labs 11/04/23 18:53 Medications Medications Current Medications Acetaminophen (Acetaminophen 325 Mg Tablet) 650 mg PO Q6H PRN PRN Reason: Headache/Pain Mild Scale (1-3) Al Hydroxide/Mg Hydroxide (Magnesium Hydrox/Alum Hydrox 30 Ml Oral.Susp) 30 ml PO Q6H PRN PRN Reason: Heartburn/Nausea Benzocaine (Benzocaine 20 % Oral Gel 9 Gm Tube) 1 appl MUCOUS MEM QID PRN; Protocol PRN Reason: Mouth Sore Pain Hydroxyzine HCl (Hydroxyzine Hcl 25 Mg Tablet) 25 mg PO Q6H PRN PRN Reason: Anxiety Magnesium Hydroxide (Milk Of Magnesia 30 Ml Oral.Susp) 30 ml PO DAILY PRN PRN Reason: Constipation Nicotine (Nicotine 21 Mg Patch.Td24) 21 mg TRANSDERMA DAILY PRN PRN Reason: smoking cessation Nicotine Polacrilex (Nicotine Polacrilex 2 Mg Gum) 4 mg BUCCAL Q2H PRN PRN Reason: Nicotine Cravings Last Admin: 11/05/23 00:52 Dose: 4 mg Quetiapine Fumarate (Quetiapine Fumarate 25 Mg Tablet) 25 mg PO BID PRN PRN Reason: Agitation, Psychosis Quetiapine Fumarate (Quetiapine Fumarate 50 Mg Tablet) 50 mg PO BEDTIME [facility] Last Admin: 11/18/23 20:08 Dose: Not Given Trazodone HCl (Trazodone Hcl 50 Mg Tablet) 50 mg PO BEDTIME MRX1 PRN PRN Reason: Insomnia Venlafaxine HCl (Venlafaxine Hcl Er 37.5 Mg Cap.Er.24h) 37.5 mg PO DAILY [facility] Last Admin: 11/19/23 09:37 Dose: Not Given Allergies Allergies Allergy/AdvReac Type Severity Reaction Status Date / Time diphenhydramine Allergy Unknown Verified 11/05/23 02:05 lorazepam Allergy Unknown Verified 11/05/23 02:05 metoclopramide Allergy Unknown Verified 11/05/23 02:05 ondansetron Allergy Unknown Verified 11/05/23 02:05 Assessment & Plan Assessment & Plan (1) Severe recurrent major depression w/psychotic features, mood-congruent: Status: Acute Code(s): F33.3 - Major depressive disorder, recurrent, severe with psychotic symptoms (2) Anorexia: Status: Acute Code(s): R63.0 - Anorexia Plan 23 yo male, hx of anorexia, cluster B personality disorder, concussion, FTT, Depression with psychosis. Struggling to eat with mood lability, SI, aggressive agitation prior to admission. hospital course: 11/11/23 TDN to 11/12/23. 11/12/2023 The patient appears to have had a relapse and psychotic symptoms over the past number of months and has not engaged in outpatient treatment his psychiatrist and neurologist Dr. Connelly. His anxiety irrational thinking in psychotic process prevented him from treatment he has had long periods with bizarre behavior related to irrational thoughts regarding smells eating and drinking and recent intrusive thoughts that he would be better off concerns regarding demons. After much encouragement the patient did agree to retract his 3 day encourage medication trial and a structured discharge plan with treatment given his severe instability and threats to self when not in a highly structured setting encourage SNRI low-dose and antipsychotic will try and coordinate care with Dr. Connelly who he is now agreeing to let us speak to Patient understands there is still consideration of civil commitment but he is agreeable to staying voluntarily and reconsidering medication treatment and coordinating with outpatient provider 11/13/2023 Case reviewed extensively with patient's outpatient psychiatrist Dr. Vel Connelly is primarily a movement disorder neurologist and patient has not been accepting treatment with medication Dr. Connelly does feel he would benefit and did benefit in the past from antidepressant antipsychotic medication. Parents appear to be having difficulties understanding the limitations civil commitment trying to get patient to accept outpatient treatment he did state he would try Seroquel and venlafaxine asked for low-dose amitriptyline which she stated helped him in the past. Monitor for adverse effects encouraged treatment and encourage outpatient treatment continue to assess for dangerousness to self but does not show any acute symptoms at this time 11/14 calm, keeping to himself, difficult with which to engage, not want to talk much about treatment. Politely Refusing labs and medications. 11/15 Patient a little more open today talk about medication. He said used to be on Seroquel about 5 years ago and was on about 700mg; he said is current dose to low, but if sign writer hand willing to increase, he'll start taking it. Agreed to start tonight at 100mg. 11/16 Pt talking about Section 7. Considering medicine. Discussed with Dr. Palumbo and Dr. Lucio. Will file Section 7 on 11/17/2311/17 Section Seven filed. Discussed with pt. Shelbie to work with team on his plan of care. 11/19/2023 Patient seen with nurse practitioner on multiple occasions seen along with patient today charts reviewed multiple times case discussed with treatment team. Patient seems to be eating and drinking well with limited symptoms is highly structured setting. He appears to understand that he needs help and treatment but for reasons that he can not verbalize continues to refuse medication despite that it helped him previously and has no explanation for why he has not taken it even though he would asked for it. Meeting with patient and family to more trying to encourage acceptance of treatment of transition to outpatient when possible patient has not been able to engage in outpatient treatment prior to admission will check lab Encourage Seroquel patient does appear to have severe anxiety with periods of psychotic decompensation Patient educated on: diagnosis, medication risk/benefits and therapeutic strategies Informed Consent: further education needed Reason for continued inpatient stay Substantial Risk for: harm to self and inability to function Time Spent With Patient Time: Total time managing care of this patient today _40___ minutes.
--- NOTE | 2023-11-20 15:06 | MHC.CLN ---
Addendum entered by Yadira Raymond, DILLON 11/20/23 15:42: VISITED WITH PATIENT ON UNIT. STATED THAT IS GLUTEN SENSITIVE. ADVISED THAT CAN WRITE IN GF BREAD, GF MUFFIN, GF COOKIE. ALERTED KITCHEN TO THE SAME AND NOTED IN [employer] MENU SYSTEM. PROVIDED INFORMATION ABOUT GLUTEN FREE DIET. Original Note: NUTRITION CONSULT TO DISCUSS GLUTEN FREE CHOICES. PATIENT IN FAMILY MEETING WITH MD. WILL ATTEMPT TO VISIT ON NEXT WORK DAY. REVIEW OF EMR SHOWS PATIENT WITH DX CROHN'S DISEASE AND NO DX CELIAC DISEASE. GLUTEN FREE DIET MEDICALLY NECESSARY WITH CELIAC DISEASE BUT NOT WITH CROHN'S. ANOREXIA NOTED PRIOR TO ADMISSION AND HX DISORDERED EATING AND WEIGHT LOSS. PATIENT EATING WELL AT MEALS AND ACCEPTS SNACKS. REVIEW OF WEIGHT HX SHOWS SIGNIFICANT WEIGHT GAIN, 20#, SINCE ADMISSION.
[2023-11-20 17:45] VITALS: BP 175/95; PULSE 106; RESP 16; TEMP 36.6; O2SAT 99
[2023-11-20 20:51] VITALS: BP 139/85; PULSE 116
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
[2023-11-21 09:00] VITALS: RESP 16
--- NOTE | 2023-11-21 12:05 | HO.PSYCHPN ---
Subjective Subjective Date of Service: 11/21/23 Reason For Visit: Gen Anxiety D/O Unspec Psychosis Interim History: pt still believes meds and food poison; observed to be eating small amounts; reports sleeping well; refuses lab work due to not liking to be touched. Medication Compliance: No Attending Groups: No Review of Systems refusing care intervention Review of Systems Review of Systems no changes Yes all other systems are reviewed and are negative (denies) Constitutional: Reports as per HPI Eyes: Reports as per HPI Reports as per HPI Cardiovascular: Reports as per HPI Respiratory: Reports as per HPI Gastrointestinal: Reports as per HPI Genitourinary: Reports as per HPI Musculoskeletal: Reports as per HPI Skin/Breast: Reports as per HPI Reports as per HPI Psychiatric: Reports as per HPI Endocrine: Reports as per HPI Hematologic/Lymphatic: Reports as per HPI Allergic/Immunologic: Reports as per HPI Mental Status Exam Mental Status Exam Narrative: pt is alert, oriented and pleasant. Normal speech. Good eye contact. Appropriate and varied affect. Moderate dysphoria present. paranoid dieas abotu food/meds. Cognitively is intact. Judgment is intact Patient Appearance: Appropriate Patient Orientation: Person, Place, Time and Situation Level of Consciousness: Alert Patient Behavior: Talkative and Good Eye Contact Mood Description: Anxious and Apprehensive Affect Description: Anxious Patient Cognition Impaired: No Ability to Follow Directions: Good Speech Pattern: Spontaneous Speech Memory Description: Intact Judgement: Poor Diagnostics Vital Signs (24Hr): Vital Signs - 24 hr 11/20/23 17:45 11/20/23 20:51 11/21/23 09:00 Temperature 97.9 F Pulse Rate 106 H 116 H Respiratory Rate 16 16 Blood Pressure 175/95 H 139/85 Pulse Oximetry 99 Oxygen Delivery Method Room Air BMI result Body Mass Index 24.1 Labs 11/04/23 18:53 Medications Medications Current Medications Acetaminophen (Acetaminophen 325 Mg Tablet) 650 mg PO Q6H PRN PRN Reason: Headache/Pain Mild Scale (1-3) Al Hydroxide/Mg Hydroxide (Magnesium Hydrox/Alum Hydrox 30 Ml Oral.Susp) 30 ml PO Q6H PRN PRN Reason: Heartburn/Nausea Benzocaine (Benzocaine 20 % Oral Gel 9 Gm Tube) 1 appl MUCOUS MEM QID PRN; Protocol PRN Reason: Mouth Sore Pain Hydroxyzine HCl (Hydroxyzine Hcl 25 Mg Tablet) 25 mg PO Q6H PRN PRN Reason: Anxiety Magnesium Hydroxide (Milk Of Magnesia 30 Ml Oral.Susp) 30 ml PO DAILY PRN PRN Reason: Constipation Nicotine (Nicotine 21 Mg Patch.Td24) 21 mg TRANSDERMA DAILY PRN PRN Reason: smoking cessation Nicotine Polacrilex (Nicotine Polacrilex 2 Mg Gum) 4 mg BUCCAL Q2H PRN PRN Reason: Nicotine Cravings Last Admin: 11/05/23 00:52 Dose: 4 mg Quetiapine Fumarate (Quetiapine Fumarate 25 Mg Tablet) 25 mg PO BID PRN PRN Reason: Agitation, Psychosis Quetiapine Fumarate (Quetiapine Fumarate 50 Mg Tablet) 50 mg PO BEDTIME JERALD Last Admin: 11/20/23 20:49 Dose: Not Given Trazodone HCl (Trazodone Hcl 50 Mg Tablet) 50 mg PO BEDTIME MRX1 PRN PRN Reason: Insomnia Venlafaxine HCl (Venlafaxine Hcl Er 37.5 Mg Cap.Er.24h) 37.5 mg PO DAILY [facility] Last Admin: 11/21/23 09:52 Dose: Not Given Allergies Allergies Allergy/AdvReac Type Severity Reaction Status Date / Time diphenhydramine Allergy Unknown Verified 11/05/23 02:05 lorazepam Allergy Unknown Verified 11/05/23 02:05 metoclopramide Allergy Unknown Verified 11/05/23 02:05 ondansetron Allergy Unknown Verified 11/05/23 02:05 Assessment & Plan Assessment & Plan (1) Severe recurrent major depression w/psychotic features, mood-congruent: Status: Acute Code(s): F33.3 - Major depressive disorder, recurrent, severe with psychotic symptoms (2) Anorexia: Status: Acute Code(s): R63.0 - Anorexia Plan 23 yo male, hx of anorexia, cluster B personality disorder, concussion, FTT, Depression with psychosis. Struggling to eat with mood lability, SI, aggressive agitation prior to admission. plan: continue current treatment plan Patient educated on: therapeutic strategies Informed Consent: further education needed Reason for continued inpatient stay Substantial Risk for: harm to self and inability to function Time Spent With Patient Time: Total time managing care of this patient today ____ minutes.
[2023-11-22 09:16] VITALS: RESP 16
--- NOTE | 2023-11-22 10:14 | HO.PSYCHPN ---
Subjective Subjective Date of Service: 11/22/23 Reason For Visit: Gen Anxiety D/O Unspec Psychosis Interim History: pt still believes meds and food are poison; refusing vital signs; observed to be eating small amounts; reports sleeping well; refuses lab work due to not liking to be touched. Medication Compliance: No Attending Groups: No Review of Systems refusing care interventions Medical Review of Systems: unchanged Review of Systems Review of Systems no changes Yes all other systems are reviewed and are negative (denies) Constitutional: Reports as per HPI Eyes: Reports as per HPI Reports as per HPI Cardiovascular: Reports as per HPI Respiratory: Reports as per HPI Gastrointestinal: Reports as per HPI Genitourinary: Reports as per HPI Musculoskeletal: Reports as per HPI Skin/Breast: Reports as per HPI Reports as per HPI Psychiatric: Reports as per HPI Endocrine: Reports as per HPI Hematologic/Lymphatic: Reports as per HPI Allergic/Immunologic: Reports as per HPI Mental Status Exam Mental Status Exam Narrative: pt is alert, oriented and pleasant. Normal speech. Good eye contact. Appropriate and varied affect. Moderate dysphoria present. paranoid ideas about food/meds. Cognitively is intact. Judgment is intact Patient Appearance: Appropriate Patient Orientation: Person, Place, Time and Situation Level of Consciousness: Alert Patient Behavior: Talkative and Good Eye Contact Mood Description: Anxious and Apprehensive Affect Description: Anxious Patient Cognition Impaired: No Ability to Follow Directions: Good Speech Pattern: Spontaneous Speech Memory Description: Intact Judgement: Fair Diagnostics Vital Signs (24Hr): Vital Signs - 24 hr 11/22/23 09:16 Respiratory Rate 16 BMI result Body Mass Index 24.1 Labs 11/04/23 18:53 Medications Medications Current Medications Acetaminophen (Acetaminophen 325 Mg Tablet) 650 mg PO Q6H PRN PRN Reason: Headache/Pain Mild Scale (1-3) Al Hydroxide/Mg Hydroxide (Magnesium Hydrox/Alum Hydrox 30 Ml Oral.Susp) 30 ml PO Q6H PRN PRN Reason: Heartburn/Nausea Benzocaine (Benzocaine 20 % Oral Gel 9 Gm Tube) 1 appl MUCOUS MEM QID PRN; Protocol PRN Reason: Mouth Sore Pain Hydroxyzine HCl (Hydroxyzine Hcl 25 Mg Tablet) 25 mg PO Q6H PRN PRN Reason: Anxiety Magnesium Hydroxide (Milk Of Magnesia 30 Ml Oral.Susp) 30 ml PO DAILY PRN PRN Reason: Constipation Nicotine (Nicotine 21 Mg Patch.Td24) 21 mg TRANSDERMA DAILY PRN PRN Reason: smoking cessation Nicotine Polacrilex (Nicotine Polacrilex 2 Mg Gum) 4 mg BUCCAL Q2H PRN PRN Reason: Nicotine Cravings Last Admin: 11/05/23 00:52 Dose: 4 mg Quetiapine Fumarate (Quetiapine Fumarate 25 Mg Tablet) 25 mg PO BID PRN PRN Reason: Agitation, Psychosis Quetiapine Fumarate (Quetiapine Fumarate 50 Mg Tablet) 50 mg PO BEDTIME [facility] Last Admin: 11/21/23 22:04 Dose: Not Given Trazodone HCl (Trazodone Hcl 50 Mg Tablet) 50 mg PO BEDTIME MRX1 PRN PRN Reason: Insomnia Venlafaxine HCl (Venlafaxine Hcl Er 37.5 Mg Cap.Er.24h) 37.5 mg PO DAILY [facility] Last Admin: 11/22/23 09:16 Dose: Not Given Allergies Allergies Allergy/AdvReac Type Severity Reaction Status Date / Time diphenhydramine Allergy Unknown Verified 11/05/23 02:05 lorazepam Allergy Unknown Verified 11/05/23 02:05 metoclopramide Allergy Unknown Verified 11/05/23 02:05 ondansetron Allergy Unknown Verified 11/05/23 02:05 Assessment & Plan Assessment & Plan (1) Severe recurrent major depression w/psychotic features, mood-congruent: Status: Acute Code(s): F33.3 - Major depressive disorder, recurrent, severe with psychotic symptoms (2) Anorexia: Status: Acute Code(s): R63.0 - Anorexia Plan 23 yo male, hx of anorexia, cluster B personality disorder, concussion, FTT, Depression with psychosis. Struggling to eat with mood lability, SI, aggressive agitation prior to admission. plan: continue current treatment plan Patient educated on: therapeutic strategies Informed Consent: understands and further education needed Reason for continued inpatient stay Substantial Risk for: harm to self, inability to function, rapid decompensation and med/psych decompensation Time Spent With Patient Time: Total time managing care of this patient today ____ minutes.
[2023-11-23 08:00] VITALS: RESP 16
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
[2023-11-24 18:00] VITALS: RESP 16
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
--- NOTE | 2023-11-24 18:32 | PC.NURSE ---
Assumed care of this pt at 18:30. Sitting upright in bed, offers no complaints at this time. PT inquiring if Leesa Joshua has been able to acquire the name pascual Lamar. Informed pt I was unsure but would pass on so this can be addressed tomorrow.
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
[2023-11-25 18:59] VITALS: BP 141/89; PULSE 102; RESP 16; TEMP 36.6; O2SAT 98
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
[2023-11-26 08:00] VITALS: RESP 16
[2023-11-26 12:45] VITALS: BMI 24.6
[2023-11-26 13:40] VITALS: BP 141/75; PULSE 108; RESP 16; TEMP 36.2; O2SAT 100
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
[2023-11-26 18:00] VITALS: RESP 16
--- NOTE | 2023-11-26 22:01 | PC.NURSE ---
Patient refused Seroquel 25 mg po scheduled at [facility].
[2023-11-27 08:00] VITALS: RESP 18
[2023-11-27 18:00] VITALS: RESP 16
--- NOTE | 2023-11-27 22:37 | HO.PSYCHPN ---
Subjective Subjective Date of Service: 11/30/23 Reason For Visit: Gen Anxiety D/O Unspec Psychosis Subjective Notes: Qureshi Warning and Section [employer] Healthcare Proxy: No Interim History: The patient continues essentially paralyzed emotionally. Continues to have catastrophic thoughts regarding taking any medication for anxiety irrational thoughts somatic preoccupations in spite of the fact that took these medications previously without difficulty. Still fixed on the either idea that he took 1 dose of Reglan in the past and that destroyed his life and that he has tardive akathisia and tardive dyskinesia none of which are apparent and none of which are seen by his neurologist at this point. Patient has also been somewhat more isolative asking for his own room because of perceived smells as his mother to leave the other day because of perceived smells and intense reaction. At home this was part of the reason he would forced his parents to not cook to take off their clothes before coming in the house or just after coming in the house although he is asked for different medication and has received much education continues to refuse any medication trying to help the patient with a potential discharge plan Medication Compliance: No Attending Groups: Intermittent Mental Status Exam Mental Status Exam Narrative: wearing mask anxious stressed looking somewhat isolative down in his room insisting on room to himself because of smells Patient Appearance: Well Grooomed Patient Orientation: Person, Place, Time and Situation Level of Consciousness: Alert Patient Behavior: Talkative and Good Eye Contact Behavior Comments: Frequently will need to walk away and stopped the conversation particularly when asked to explain his thinking or reasoning this is ongoing Mood Description: Anxious, Labile and Apprehensive Affect Description: Constricted, Anxious and Apprehensive Patient Cognition Impaired: No Ability to Follow Directions: Good Speech Pattern: Spontaneous Speech Memory Description: Intact Hallucinations: None Thought Process: Rumination Thought Content: positive for Perseveration, negative for Suicidal Ideation or negative for Homicidal Ideation Depressive Symptoms: Increased Anxiety, Loss of Int. in Activity and Thoughts of /Suicide Judgement: Poor Judgement and Insight: The patient continues to have difficulty coming up with any plan to manage the symptoms that were so paralyzing him prior to admission he does appear to be having some increased symptoms reactivity to smells like he had prior to admission but without the intensity. Can not really explain what he might do as an outpatient remains illogical fixed irrational belief regarding having akathisia and tardive dyskinesia none of which were apparent asking for medication including clonidine Effexor Seroquel within continues to refuse fearing a catastrophic reaction Diagnostics Vital Signs (24Hr): Vital Signs - 24 hr 11/27/23 08:00 11/27/23 18:00 Respiratory Rate 18 16 BMI result Body Mass Index 24.6 Labs 11/04/23 18:53 Medications Medications Current Medications Acetaminophen (Acetaminophen 325 Mg Tablet) 650 mg PO Q6H PRN PRN Reason: Headache/Pain Mild Scale (1-3) Al Hydroxide/Mg Hydroxide (Magnesium Hydrox/Alum Hydrox 30 Ml Oral.Susp) 30 ml PO Q6H PRN PRN Reason: Heartburn/Nausea Benzocaine (Benzocaine 20 % Oral Gel 9 Gm Tube) 1 appl MUCOUS MEM QID PRN; Protocol PRN Reason: Mouth Sore Pain Clonidine HCl (Clonidine Hcl 0.1 Mg Tablet) 0.1 mg PO BID PRN; Protocol PRN Reason: anxiety/restlessness Magnesium Hydroxide (Milk Of Magnesia 30 Ml Oral.Susp) 30 ml PO DAILY PRN PRN Reason: Constipation Nicotine (Nicotine 21 Mg Patch.Td24) 21 mg TRANSDERMA DAILY PRN PRN Reason: smoking cessation Nicotine Polacrilex (Nicotine Polacrilex 2 Mg Gum) 4 mg BUCCAL Q2H PRN PRN Reason: Nicotine Cravings Last Admin: 11/05/23 00:52 Dose: 4 mg Quetiapine Fumarate (Quetiapine Fumarate 25 Mg Tablet) 25 mg PO BID PRN PRN Reason: Agitation, Psychosis Quetiapine Fumarate (Quetiapine Fumarate 25 Mg Tablet) 25 mg PO BEDTIME [facility] Last Admin: 11/27/23 20:32 Dose: Not Given Trazodone HCl (Trazodone Hcl 50 Mg Tablet) 50 mg PO BEDTIME MRX1 PRN PRN Reason: Insomnia Venlafaxine HCl (Venlafaxine Hcl Er 37.5 Mg Cap.Er.24h) 37.5 mg PO DAILY [facility] Last Admin: 11/27/23 09:14 Dose: Not Given Allergies Allergies Allergy/AdvReac Type Severity Reaction Status Date / Time diphenhydramine Allergy Unknown Verified 11/05/23 02:05 lorazepam Allergy Unknown Verified 11/05/23 02:05 metoclopramide Allergy Unknown Verified 11/05/23 02:05 ondansetron Allergy Unknown Verified 11/05/23 02:05 Assessment & Plan Assessment & Plan (1) Severe recurrent major depression w/psychotic features, mood-congruent: Status: Acute Code(s): F33.3 - Major depressive disorder, recurrent, severe with psychotic symptoms (2) Anorexia: Status: Acute Code(s): R63.0 - Anorexia Plan The patient is something of a conundrum. He has been somewhat less isolative did start going to 1 group and has been eating and drinking better and has had significant weight gain. On the other hand the patient is had escalating symptoms prior to admission where his parents were forced to not cook not have anyone over increase concerns regarding smells and if things were not recently followed patient became severely agitated self-harming punching trivedi punching through a window in did have 1 physical tussle with his father. Patient can not seem to engage in logical conversation regarding what is happening with him is not opened medical judgment and his outpatient neurologist to movement disorder neurologist has felt that he has a significant psychiatric condition that does put him at significant risk. Patient did quite well with antidepressants and antipsychotics previously although on a number of occasions he stated he would start them was cooperative discussing dosing eventually would refuse to take and appears to remain a significant danger to inability to care for self if not out right harm self if he were to return to the same situation as prior to admission. Encourage outpatient treatment and acceptance patient's mother stated she had to stop working order to take care of her son in outpatient basis. Present time continue plan for scheduled commitment hearing treatment plan patient has responded quite well to treatment in the past he is doing better than at home with the structure of the milieu His parents have grave concerns if he were to return home 11/23/23 Continues to refuse not able to process info re dx or treatment 11/24/23 Asking questions regarding medication treatment Anxious about upcoming hearing. 11/25/2023 Patient had been weighing taking medication trying to explain if he is concerned about medication side effects taking very low doses and hospital setting would make sense where he can be under observation and deal with side effects. His movement disorder neurologist and his history suggest he would done quite well with medication in the past but appears to have a fixed belief even though he took medication willingly in years past has never had significant side effects on psychiatric medication but had marked improve response continues to irrational fears that he would stop eating not be able to walk and appears to have a psychotic level of processing when it comes to this information. On the other hand he basically does not feel he has psychiatric illness but a side effect from 1 dose of Reglan many years ago has had thoughts at times that he could be possessed as a way of explaining what he thinks is happening to himself appears to reach somatic delusional proportions with no expressed ideas of how he could manage this himself he does seem to be doing okay in highly structured setting have tried to review repeatedly risks benefits and alternatives and ways to transition out of a commitment setting to collaborative treatment and discharge planning patient appears not to be able to make that transition at this time. 11/27/23 Continue to encourage low-dose medication acceptance patient has no plan to manage any of his symptoms outpatient encourage low-dose medication inpatient so he has some sense where medication might fit into his treatment had done quite well previously on medication according to his movement disorder neurologist case also reviewed with the patient's mother case reviewed in treatment planning Reason for continued inpatient stay Substantial Risk for: inability to function, rapid decompensation and med/psych decompensation Time Spent With Patient Time: Total time managing care of this patient today ____ minutes.
--- NOTE | 2023-11-28 10:58 | P.PNPSI_ITS ---
Subjective Subjective Date of Service: 11/28/23 Reason For Visit: Gen Anxiety D/O Unspec Psychosis Interim History: met with patient. Discussed with Nursing. Overall reported that things were going okay from his perspective. Reported not preferring to over history. Still feels he does not have any significant mental health issues or need medications. Apprehensive regarding court hearing on 12/01/2023. Medication Compliance: No Attending Groups: Intermittent Review of Systems Acute medical concerns: No Review of Systems Review of Systems Unremarkable Mental Status Exam Mental Status Exam Narrative: overall pleasant. Fair self-care. Superficially engaged. 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 Did not want to discuss recent history. Denied depression SI HI. Denies hallucinations. Insight and judgment is limited Diagnostics Vital Signs (24Hr): Vital Signs - 24 hr 11/27/23 18:00 Respiratory Rate 16 BMI result Body Mass Index 24.6 Labs 11/04/23 18:53 Medications Medications Current Medications Acetaminophen (Acetaminophen 325 Mg Tablet) 650 mg PO Q6H PRN PRN Reason: Headache/Pain Mild Scale (1-3) Al Hydroxide/Mg Hydroxide (Magnesium Hydrox/Alum Hydrox 30 Ml Oral.Susp) 30 ml PO Q6H PRN PRN Reason: Heartburn/Nausea Benzocaine (Benzocaine 20 % Oral Gel 9 Gm Tube) 1 appl MUCOUS MEM QID PRN; Protocol PRN Reason: Mouth Sore Pain Clonidine HCl (Clonidine Hcl 0.1 Mg Tablet) 0.1 mg PO BID PRN; Protocol PRN Reason: anxiety/restlessness Magnesium Hydroxide (Milk Of Magnesia 30 Ml Oral.Susp) 30 ml PO DAILY PRN PRN Reason: Constipation Nicotine (Nicotine 21 Mg Patch.Td24) 21 mg TRANSDERMA DAILY PRN PRN Reason: smoking cessation Nicotine Polacrilex (Nicotine Polacrilex 2 Mg Gum) 4 mg BUCCAL Q2H PRN PRN Reason: Nicotine Cravings Last Admin: 11/05/23 00:52 Dose: 4 mg Quetiapine Fumarate (Quetiapine Fumarate 25 Mg Tablet) 25 mg PO BID PRN PRN Reason: Agitation, Psychosis Quetiapine Fumarate (Quetiapine Fumarate 25 Mg Tablet) 25 mg PO BEDTIME [facility] Last Admin: 11/27/23 20:32 Dose: Not Given Trazodone HCl (Trazodone Hcl 50 Mg Tablet) 50 mg PO BEDTIME MRX1 PRN PRN Reason: Insomnia Venlafaxine HCl (Venlafaxine Hcl Er 37.5 Mg Cap.Er.24h) 37.5 mg PO DAILY [facility] Last Admin: 11/27/23 09:14 Dose: Not Given Allergies Allergies Allergy/AdvReac Type Severity Reaction Status Date / Time diphenhydramine Allergy Unknown Verified 11/05/23 02:05 lorazepam Allergy Unknown Verified 11/05/23 02:05 metoclopramide Allergy Unknown Verified 11/05/23 02:05 ondansetron Allergy Unknown Verified 11/05/23 02:05 Assessment & Plan Assessment & Plan (1) Severe recurrent major depression w/psychotic features, mood-congruent: Status: Acute Code(s): F33.3 - Major depressive disorder, recurrent, severe with psychotic symptoms (2) Anorexia: Status: Acute Code(s): R63.0 - Anorexia Plan The patient is something of a conundrum. He has been somewhat less isolative did start going to 1 group and has been eating and drinking better and has had significant weight gain. On the other hand the patient is had escalating symptoms prior to admission where his parents were forced to not cook not have anyone over increase concerns regarding smells and if things were not recently followed patient became severely agitated self-harming punching trivedi punching through a window in did have 1 physical tussle with his father. Patient can not seem to engage in logical conversation regarding what is happening with him is not opened medical judgment and his outpatient neurologist to movement disorder neurologist has felt that he has a significant psychiatric condition that does put him at significant risk. Patient did quite well with antidepressants and antipsychotics previously although on a number of occasions he stated he would start them was cooperative discussing dosing eventually would refuse to take and appears to remain a significant danger to inability to care for self if not out right harm self if he were to return to the same situation as prior to admission. Encourage outpatient treatment and acceptance patient's mother stated she had to stop working order to take care of her son in outpatient basis. Present time continue plan for scheduled commitment hearing treatment plan patient has responded quite well to treatment in the past he is doing better than at home with the structure of the milieu His parents have grave concerns if he were to return home 11/23/23 Continues to refuse not able to process info re dx or treatment 11/24/23 Asking questions regarding medication treatment Anxious about upcoming hearing. 11/25/2023 Patient had been weighing taking medication trying to explain if he is concerned about medication side effects taking very low doses and hospital setting would make sense where he can be under observation and deal with side effects. His movement disorder neurologist and his history suggest he would done quite well with medication in the past but appears to have a fixed belief even though he took medication willingly in years past has never had significant side effects on psychiatric medication but had marked improve response continues to irrational fears that he would stop eating not be able to walk and appears to have a psychotic level of processing when it comes to this information. On the other hand he basically does not feel he has psychiatric illness but a side effect from 1 dose of Reglan many years ago has had thoughts at times that he could be possessed as a way of explaining what he thinks is happening to himself appears to reach somatic delusional proportions with no expressed ideas of how he could manage this himself he does seem to be doing okay in highly structured setting have tried to review repeatedly risks benefits and alternatives and ways to transition out of a commitment setting to collaborative treatment and discharge planning patient appears not to be able to make that transition at this time. 11/28: No changes to current treatment plan i.e. court hearing scheduled 12/01/23 Reason for continued inpatient stay Substantial Risk for: rapid decompensation Time Spent With Patient Time: Total time managing care of this patient today ____ minutes.
--- NOTE | 2023-11-29 12:16 | HO.PSYCHPN ---
Subjective Subjective Date of Service: 11/29/23 Reason For Visit: Gen Anxiety D/O Unspec Psychosis Interim History: Met with patient. Discussed with Nursing. Overall reported that things were going okay from his perspective and wanted to try cymbalta helped me alot before . Unable to specify how it helped. Denies SI or psychosis. Remains apprehensive regarding court hearing on 12/01/2023. Medication Compliance: No Side effects from medications: No Attending Groups: Intermittent Review of Systems Acute medical concerns: No Review of Systems Review of Systems Unremarkable Mental Status Exam Mental Status Exam Narrative: overall pleasant. Fair self-care. More engaged. Denied depression SI HI. Denies hallucinations. Insight and judgment is limited. Wanted cymbalta but unable to specify how it helped in the past. Diagnostics Vital Signs (24Hr): BMI result Body Mass Index 24.6 Labs 11/04/23 18:53 Medications Medications Current Medications Acetaminophen (Acetaminophen 325 Mg Tablet) 650 mg PO Q6H PRN PRN Reason: Headache/Pain Mild Scale (1-3) Al Hydroxide/Mg Hydroxide (Magnesium Hydrox/Alum Hydrox 30 Ml Oral.Susp) 30 ml PO Q6H PRN PRN Reason: Heartburn/Nausea Benzocaine (Benzocaine 20 % Oral Gel 9 Gm Tube) 1 appl MUCOUS MEM QID PRN; Protocol PRN Reason: Mouth Sore Pain Clonidine HCl (Clonidine Hcl 0.1 Mg Tablet) 0.1 mg PO BID PRN; Protocol PRN Reason: anxiety/restlessness Duloxetine HCl (Duloxetine Hcl 30 Mg Capsule.Dr) 30 mg PO DAILY [facility] Magnesium Hydroxide (Milk Of Magnesia 30 Ml Oral.Susp) 30 ml PO DAILY PRN PRN Reason: Constipation Nicotine (Nicotine 21 Mg Patch.Td24) 21 mg TRANSDERMA DAILY PRN PRN Reason: smoking cessation Nicotine Polacrilex (Nicotine Polacrilex 2 Mg Gum) 4 mg BUCCAL Q2H PRN PRN Reason: Nicotine Cravings Last Admin: 11/05/23 00:52 Dose: 4 mg Quetiapine Fumarate (Quetiapine Fumarate 25 Mg Tablet) 25 mg PO BID PRN PRN Reason: Agitation, Psychosis Quetiapine Fumarate (Quetiapine Fumarate 25 Mg Tablet) 25 mg PO BEDTIME [facility] Last Admin: 11/28/23 20:49 Dose: Not Given Trazodone HCl (Trazodone Hcl 50 Mg Tablet) 50 mg PO BEDTIME MRX1 PRN PRN Reason: Insomnia Venlafaxine HCl (Venlafaxine Hcl Er 37.5 Mg Cap.Er.24h) 37.5 mg PO DAILY [facility] Last Admin: 11/29/23 11:23 Dose: Not Given Allergies Allergies Allergy/AdvReac Type Severity Reaction Status Date / Time diphenhydramine Allergy Unknown Verified 11/05/23 02:05 lorazepam Allergy Unknown Verified 11/05/23 02:05 metoclopramide Allergy Unknown Verified 11/05/23 02:05 ondansetron Allergy Unknown Verified 11/05/23 02:05 Assessment & Plan Assessment & Plan (1) Severe recurrent major depression w/psychotic features, mood-congruent: Status: Acute Code(s): F33.3 - Major depressive disorder, recurrent, severe with psychotic symptoms (2) Anorexia: Status: Acute Code(s): R63.0 - Anorexia Plan The patient is something of a conundrum. He has been somewhat less isolative did start going to 1 group and has been eating and drinking better and has had significant weight gain. On the other hand the patient is had escalating symptoms prior to admission where his parents were forced to not cook not have anyone over increase concerns regarding smells and if things were not recently followed patient became severely agitated self-harming punching trivedi punching through a window in did have 1 physical tussle with his father. Patient can not seem to engage in logical conversation regarding what is happening with him is not opened medical judgment and his outpatient neurologist to movement disorder neurologist has felt that he has a significant psychiatric condition that does put him at significant risk. Patient did quite well with antidepressants and antipsychotics previously although on a number of occasions he stated he would start them was cooperative discussing dosing eventually would refuse to take and appears to remain a significant danger to inability to care for self if not out right harm self if he were to return to the same situation as prior to admission. Encourage outpatient treatment and acceptance patient's mother stated she had to stop working order to take care of her son in outpatient basis. Present time continue plan for scheduled commitment hearing treatment plan patient has responded quite well to treatment in the past he is doing better than at home with the structure of the milieu His parents have grave concerns if he were to return home 11/23/23 Continues to refuse not able to process info re dx or treatment 11/24/23 Asking questions regarding medication treatment Anxious about upcoming hearing. 11/25/2023 Patient had been weighing taking medication trying to explain if he is concerned about medication side effects taking very low doses and hospital setting would make sense where he can be under observation and deal with side effects. His movement disorder neurologist and his history suggest he would done quite well with medication in the past but appears to have a fixed belief even though he took medication willingly in years past has never had significant side effects on psychiatric medication but had marked improve response continues to irrational fears that he would stop eating not be able to walk and appears to have a psychotic level of processing when it comes to this information. On the other hand he basically does not feel he has psychiatric illness but a side effect from 1 dose of Reglan many years ago has had thoughts at times that he could be possessed as a way of explaining what he thinks is happening to himself appears to reach somatic delusional proportions with no expressed ideas of how he could manage this himself he does seem to be doing okay in highly structured setting have tried to review repeatedly risks benefits and alternatives and ways to transition out of a commitment setting to collaborative treatment and discharge planning patient appears not to be able to make that transition at this time. 2: No changes to current treatment plan i.e. court hearing scheduled 12/01/2311/29: Started cymbalta as per patient request- he is unable to specify how it helped in the past. Reason for continued inpatient stay Substantial Risk for: inability to function Time Spent With Patient Time: Total time managing care of this patient today ____ minutes.
[2023-11-29 18:00] VITALS: RESP 18
[2023-11-30 06:00] VITALS: RESP 16
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
[2023-12-01 08:00] VITALS: RESP 16
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
[2023-12-01 17:27] VITALS: BP 139/85; PULSE 117; RESP 18; TEMP 36.4; O2SAT 95
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
[2023-12-02 10:59] VITALS: RESP 16
[2023-12-02 11:50] VITALS: BP 131/79; PULSE 101; RESP 16; TEMP 36.2; O2SAT 100
[2023-12-02 20:18] VITALS: BP 133/74; PULSE 89; RESP 18; TEMP 36.6; O2SAT 97
[2023-12-03 07:00] VITALS: BMI 24.4
[2023-12-03 09:00] VITALS: RESP 18
[2023-12-03 17:32] VITALS: RESP 16
[2023-12-04 06:00] VITALS: RESP 18
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
[2023-12-04 16:14] VITALS: RESP 16
[2023-12-04 20:01] LABS: MANUAL DIFF FLAG NO
[2023-12-04 20:02] LABS: Basophils Absolute Auto 0.1 X10*3/uL (0.0-0.2); Basophils Percent Auto 1.4 % (0-2); Eosinophils Absolute Auto 0.1 X10*3/uL (0.0-0.4); Hematocrit 39.6 % (42.0-52.0); Hemoglobin 13.5 g/dl (14.0-18.0); Imm Gran Abs Auto 0.02 X10*3/uL (0.00-0.03); Imm Gran Pct Auto 0.4 % (0.0-0.4); Lymphocytes Percent Auto 35.2 % (20-40); Mean Corpuscular HGB Conc 34.1 g/dl (31.0-36.0); Mean Corpuscular Hemoglobin 33.4 pg (27.0-33.0); Mean Platelet Volume 11.6 fL (9.4-12.4); Monocytes Absolute Auto 0.5 X10*3/uL (0.1-1.2); Monocytes Percent Auto 8.6 % (2-11); Neutrophils Absolute Auto 2.9 x10*3/uL (2.0-8.3); Neutrophils Percent Auto 52.4 % (45-73); Platelet Count 187 X10*3/uL (160-400); Red Blood Count 4.04 X10*6/uL (4.60-5.80); Red Cell Distribution Width 13.7 % (11.0-16.0); White Blood Count 5.6 X10*3/uL (4.8-10.8)
[2023-12-04 20:03] LABS: Immature Retic Fraction 5.9 % (2.3-13.4); Retic HGB Equivalent 35.8 pg (30.0-35.0); Reticulocytes Absolute 0.123 X10*6/uL (0.026-0.095)
[2023-12-04 20:18] LABS: Rheumatoid Factor < 13.0 IU/mL (<15.0)
[2023-12-04 20:19] LABS: Alanine Aminotransferase 94 U/L (0-40); Albumin Level 4.4 g/dL (3.5-5.0); Alkaline Phosphatase 76 U/L (39-117); Aspartate Amino Transferase 46 U/L (5-37); Bilirubin Direct 0.3 mg/dL (0.0-0.5); Bilirubin Total 1.2 mg/dL (0.0-1.0); Total Protein 7.6 g/dL (6.5-8.0)
[2023-12-04 20:28] LABS: Alanine Aminotransferase 94 U/L (0-40); Albumin Level 4.3 g/dL (3.5-5.0); Alkaline Phosphatase 74 U/L (39-117); Anion Gap 16 (12-20); Aspartate Amino Transferase 48 U/L (5-37); Bilirubin Total 1.1 mg/dL (0.0-1.0); Blood Urea Nitrogen 18 mg/dL (9-16); C Reactive Protein 0.26 mg/dL (< or = 0.50); Calcium 9.7 mg/dL (8.4-10.2); Carbon Dioxide 24 mmol/L (22-29); Chloride 104 mmol/L (96-108); Creatinine Clr Calc Pharmacy 170.1; Estimated Glomerular Filt Rate > 60; Glucose Fasting 110 mg/dL (60-99); Sodium 140 mmol/L (135-145); Total Protein 7.7 g/dL (6.5-8.0)
[2023-12-04 20:39] LABS: Ferritin 369 ng/mL (20-250)
[2023-12-04 20:40] LABS: TSH reflex Free T4 1.54 uIU/mL (0.32-4.0)
[2023-12-04] MEDS: QUEtiapine Fumarate 25 MG TABLET PO (21:37)
[2023-12-05 09:28] LABS: Appearance Urine Clear; Color Urine Yellow; Glucose Urine UA Negative (Negative); Leukocyte Esterase Urine Negative (Negative); Nitrite Urine Negative (Negative); PH 5.5 (5.0-9.0); Urine Blood Negative (Negative); Urine Ketones Negative (Negative); Urine Protein Negative (Neg-Trace)
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
[2023-12-05 11:19] VITALS: RESP 16
[2023-12-05] MEDS: QUEtiapine Fumarate 25 MG TABLET PO (21:49)
[2023-12-06 01:39] LABS: Haptoglobin 121 MG/DL ((30-200))
[2023-12-06 08:55] VITALS: RESP 18
[2023-12-06 09:08] LABS: Adenovirus F 40/41 Not Detected (Not Detect.); Astrovirus Not Detected (Not Detect.); Campylobacter Not Detected (Not Detect.); Cryptosporidium Not Detected (Not Detect.); Cyclospora cayetanensis Not Detected (Not Detect.); E. coli EAEC Not Detected (Not Detect.); E. coli EPEC Not Detected (Not Detect.); E. coli ETEC Not Detected (Not Detect.); E. coli STEC Not Detected (Not Detect.); Entamoeba histolytica Not Detected (Not Detect.); Giardia lamblia Not Detected (Not Detect.); Norovirus GI/GII Not Detected (Not Detect.); Plesiomonas shigelloides Not Detected (Not Detect.); Rotavirus A Not Detected (Not Detect.); Salmonella Not Detected (Not Detect.); Sapovirus Not Detected (Not Detect.); Shigella sp./EIEC Not Detected (Not Detect.); Vibrio Not Detected (Not Detect.); Vibrio Cholerae Not Detected (Not Detect.); Yersinia enterocolitica Not Detected (Not Detect.)
[2023-12-06] MEDS: Venlafaxine HCl ER 37.5 MG CAP.ER.24H PO (15:52)
[2023-12-06] MEDS: QUEtiapine Fumarate 25 MG TABLET PO (21:19)
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
[2023-12-07 09:19] VITALS: RESP 16
[2023-12-07] MEDS: Venlafaxine HCl ER 37.5 MG CAP.ER.24H PO (13:58)
[2023-12-07 18:00] VITALS: RESP 16
[2023-12-07] MEDS: QUEtiapine Fumarate 50 MG TABLET PO (21:24)
[2023-12-07 22:04] LABS: Transglutaminase IgA <1.0 U/mL
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
[2023-12-08 09:32] VITALS: RESP 18
--- NOTE | 2023-12-08 13:58 | P.EN_ITS ---
Event Note Date of Service: 12/08/23 Event Note: Consult placed to hospitalist service for inc ferritin/dec hct/inc lft . On review of prior records, bilirubin is chronically elevated around [facility]. Gi has been consulted and defer management to GI. Would evaluate ferritin with iron studies given coincident mild anemia. Repeat CBC, ferritin, and iron studies ordered. LFT elevation is acute, not chronic, and is only mildly elevated with slight hemolysis noted on labs. Would recommend repeating liver panel given the slight hemolysis noted on labs. Doubt hemolytic anemia given only mild elevation of bilirubin, but given new mild anemia, will check haptoglobin and ldh. Pt is currently refusing lab draws. At this time, no further intervention is advised beyond repeating labs. Ensure adequate nutrition while on unit. Recommend nutrition follow up on patient given history of anorexia. Time Spent With Patient Time: Total time managing care of this patient today ____ minutes.
[2023-12-08] MEDS: DULoxetine HCl 30 MG CAPSULE.DR PO (15:44)
[2023-12-08 16:21] VITALS: RESP 18
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
[2023-12-08] MEDS: QUEtiapine Fumarate 25 MG TABLET 75 MG PO (21:46)
[2023-12-09 08:00] VITALS: RESP 20
[2023-12-09] MEDS: DULoxetine HCl 30 MG CAPSULE.DR PO (16:05)
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
[2023-12-09] MEDS: QUEtiapine Fumarate 25 MG TABLET PO (21:33)
[2023-12-09] MEDS: QUEtiapine Fumarate 25 MG TABLET 75 MG PO (21:33)
[2023-12-10 06:00] VITALS: RESP 16
[2023-12-10] MEDS: DULoxetine HCl 30 MG CAPSULE.DR PO (15:01)
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
[2023-12-10 18:00] VITALS: RESP 18
[2023-12-10] MEDS: QUEtiapine Fumarate 50 MG TABLET 150 MG PO (21:46)
[2023-12-11 09:02] VITALS: RESP 16
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
[2023-12-11] MEDS: DULoxetine HCl 30 MG CAPSULE.DR PO (14:43)
[2023-12-11 18:35] VITALS: RESP 16; TEMP 36.7
[2023-12-11] MEDS: QUEtiapine Fumarate 50 MG TABLET 150 MG PO (22:18)
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
[2023-12-12] MEDS: DULoxetine HCl 30 MG CAPSULE.DR PO (14:57)
[2023-12-12] MEDS: QUEtiapine Fumarate 200 MG TABLET PO (22:00)
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
--- NOTE | 2023-12-13 13:46 | PC.NURSE ---
pt reports seroquel makes me feel good for about 30 minutes but then I'm back to where I was . Pt was unable to report what specifically improves or able to articulate what, where I was means.
--- NOTE | 2023-12-13 15:06 | PC.NURSE ---
pt will not drink water that is not bottled which is not available from the kitchen at this time. Awaiting delivery from kitchen.
[2023-12-13] MEDS: DULoxetine HCl 30 MG CAPSULE.DR PO (16:12)
[2023-12-13 18:00] VITALS: RESP 18
[2023-12-13] MEDS: QUEtiapine Fumarate 200 MG TABLET PO (21:38)
[2023-12-14 10:53] LABS: ANA Titer 2 1:40 titer; Anti Nuclear Antibody Screen POSITIVE (NEGATIVE); Anti Nuclear Antibody Titer 1:40 titer
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
[2023-12-14] MEDS: DULoxetine HCl 30 MG CAPSULE.DR PO (14:46)
[2023-12-14] MEDS: QUEtiapine Fumarate 200 MG TABLET PO (21:46)
[2023-12-15 08:16] VITALS: RESP 18
[2023-12-15] MEDS: guanFACINE HCl ER 1 MG TAB.ER.24H PO (13:02)
[2023-12-15] MEDS: DULoxetine HCl 30 MG CAPSULE.DR PO (14:50)
[2023-12-15 18:00] VITALS: PULSE 18
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
[2023-12-15] MEDS: QUEtiapine Fumarate 200 MG TABLET PO (21:44)
[2023-12-15] MEDS: Amitriptyline HCl 25 MG TABLET PO (22:51)
[2023-12-16 09:45] VITALS: RESP 16
[2023-12-16] MEDS: DULoxetine HCl 20 MG CAPSULE.DR 40 MG PO (14:54)
[2023-12-16 16:29] VITALS: RESP 18
[2023-12-16] MEDS: guanFACINE HCl ER 1 MG TAB.ER.24H PO (16:58)
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
[2023-12-16] MEDS: QUEtiapine Fumarate 50 MG TABLET 250 MG PO (21:07)
[2023-12-17 07:00] VITALS: BMI 25.3
[2023-12-17 07:43] LABS: Cobalt, Random Urine 3.7 mcg/L; Creatinine, Random Urine 111 mg/dL (20-320)
[2023-12-17] MEDS: DULoxetine HCl 20 MG CAPSULE.DR 40 MG PO (14:51)
[2023-12-17] MEDS: guanFACINE HCl ER 1 MG TAB.ER.24H PO (14:56)
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
[2023-12-17] MEDS: QUEtiapine Fumarate 50 MG TABLET 250 MG PO (21:28)
[2023-12-18 08:40] VITALS: RESP 18
[2023-12-18] MEDS: DULoxetine HCl 20 MG CAPSULE.DR 40 MG PO (15:13)
[2023-12-18] MEDS: QUEtiapine Fumarate 300 MG TABLET PO (22:02)
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
[2023-12-19 09:00] VITALS: RESP 16
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
[2023-12-19] MEDS: DULoxetine HCl 20 MG CAPSULE.DR 40 MG PO (15:14)
[2023-12-19] MEDS: QUEtiapine Fumarate 300 MG TABLET PO (21:23)
[2023-12-20 09:41] VITALS: RESP 16
[2023-12-20 11:50] VITALS: TEMP 36.1
[2023-12-20] MEDS: DULoxetine HCl 20 MG CAPSULE.DR 40 MG PO (14:48)
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
[2023-12-20] MEDS: guanFACINE HCl ER 1 MG TAB.ER.24H PO (17:14)
[2023-12-20 17:28] VITALS: TEMP 36.4
[2023-12-20] MEDS: QUEtiapine Fumarate 300 MG TABLET PO (20:39)
[2023-12-21 14:55] VITALS: TEMP 38.4
--- NOTE | 2023-12-21 14:56 | PC.NURSE ---
pt reports, not feeling well and having a cough. Temp 101.2 provider CAW notified in person and will order covid/flu/rsv testing
[2023-12-21] MEDS: DULoxetine HCl 20 MG CAPSULE.DR 40 MG PO (15:48)
[2023-12-21 17:52] LABS: Influenza A PCR POSITIVE (Negative); Influenza B PCR NEGATIVE (Negative); Resp Syncy Virus RNA Qual PCR NEGATIVE (Negative); SARS COV2 PCR INHOUSE NEGATIVE (Negative)
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
[2023-12-21] MEDS: QUEtiapine Fumarate 300 MG TABLET PO (22:17)
[2023-12-22 08:05] VITALS: TEMP 37.8
[2023-12-22] MEDS: guanFACINE HCl ER 1 MG TAB.ER.24H PO (09:18)
[2023-12-22] MEDS: DULoxetine HCl 20 MG CAPSULE.DR 40 MG PO (15:40)
[2023-12-22 16:16] VITALS: PULSE 146; RESP 18; TEMP 37; O2SAT 97
[2023-12-22 17:22] VITALS: TEMP 38.1; TEMP 39.2
[2023-12-22] MEDS: QUEtiapine Fumarate 25 MG TABLET PO (18:50)
[2023-12-22] MEDS: QUEtiapine Fumarate 300 MG TABLET PO (20:24)
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
[2023-12-23 08:21] VITALS: RESP 16; TEMP 36.2
[2023-12-23] MEDS: QUEtiapine Fumarate 25 MG TABLET PO ×2 (09:14→17:30)
[2023-12-23] MEDS: guanFACINE HCl ER 1 MG TAB.ER.24H PO (12:43)
[2023-12-23 12:44] VITALS: TEMP 36.3
[2023-12-23] MEDS: DULoxetine HCl 20 MG CAPSULE.DR 40 MG PO (14:49)
[2023-12-23 15:00] VITALS: TEMP 36.6
[2023-12-23] MEDS: QUEtiapine Fumarate 300 MG TABLET PO (20:25)
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
[2023-12-24 07:00] VITALS: BMI 25.4
[2023-12-24] MEDS: QUEtiapine Fumarate 25 MG TABLET PO (13:06)
[2023-12-24] MEDS: DULoxetine HCl 20 MG CAPSULE.DR 40 MG PO (15:45)
[2023-12-24] MEDS: guanFACINE HCl ER 1 MG TAB.ER.24H PO (17:26)
[2023-12-24] MEDS: QUEtiapine Fumarate 50 MG TABLET PO (18:58)
[2023-12-24] MEDS: QUEtiapine Fumarate 300 MG TABLET PO (20:39)
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
[2023-12-25 08:58] VITALS: RESP 16; TEMP 36.3
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
[2023-12-25] MEDS: DULoxetine HCl 20 MG CAPSULE.DR 40 MG PO (14:40)
[2023-12-25 16:31] VITALS: TEMP 36.5
[2023-12-25] MEDS: QUEtiapine Fumarate 300 MG TABLET PO (19:54)
[2023-12-26 09:16] VITALS: RESP 16
[2023-12-26] MEDS: QUEtiapine Fumarate 50 MG TABLET PO (10:40)
--- NOTE | 2023-12-26 13:25 | P.PNPSI_ITS ---
Subjective Subjective Date of Service: 12/26/23 Reason For Visit: Gen Anxiety D/O Unspec Psychosis Subjective Notes: Section 8 Guardianship: No Medical Problems Affecting Mental Status: No Interim History: Pt reports taking seroquel that is helping- He tells me this happened 5 years ago and was able to go 5 years without it- Can't really explain what happened that got him in here- Denies thoughts to hurt self or other. Nursing report pt was verbally aggressive with father yesterday when he came to visit Medication Compliance: Yes Side effects from medications: Yes (mild sedation) Attending Groups: Intermittent Review of Systems Acute medical concerns: No Medical Review of Systems: changed (mild dizziness) Mental Status Exam Mental Status Exam Patient Appearance: Well Grooomed and Appropriate Patient Orientation: Person, Place, Time and Situation Level of Consciousness: Awake and Appropriate Patient Behavior: Appropriate and Cooperative Behavior Comments: bored Mood Description: Calm Affect Description: Blunted Patient Cognition Impaired: No Ability to Follow Directions: Good Speech Pattern: Clear Hallucinations: None Thought Process: Intact Thought Content: positive for Intact and positive for Goal Oriented Judgement: Fair Diagnostics Vital Signs (24Hr): Vital Signs - 24 hr 12/25/23 16:31 12/26/23 09:16 Temperature 97.7 F Respiratory Rate 16 BMI result Body Mass Index 25.4 Labs 12/04/23 19:39 12/04/23 19:39 Medications Medications Current Medications Acetaminophen (Acetaminophen 325 Mg Tablet) 650 mg PO Q6H PRN PRN Reason: Headache/Pain Mild Scale (1-3) Al Hydroxide/Mg Hydroxide (Magnesium Hydrox/Alum Hydrox 30 Ml Oral.Susp) 30 ml PO Q6H PRN PRN Reason: Heartburn/Nausea Albuterol Sulfate (Albuterol Sulfate 90 Mcg 8 Gm Inhaler) 2 puff INHALE RQ6H PRN PRN Reason: Shortness of Breath Amitriptyline HCl (Amitriptyline Hcl 25 Mg Tablet) 25 mg PO BEDTIME PRN PRN Reason: sleep Last Admin: 12/15/23 22:51 Dose: 25 mg Benzocaine (Benzocaine 20 % Oral Gel 9 Gm Tube) 1 appl MUCOUS MEM QID PRN; Protocol PRN Reason: Mouth Sore Pain Clonidine HCl (Clonidine Hcl 0.1 Mg Tablet) 0.1 mg PO BID PRN; Protocol PRN Reason: anxiety Diazepam (Diazepam 10 Mg/2 Ml Cartridge) 2.5 mg IM DAILY PRN PRN Reason: IF REFUSES PO SCHEDULED CYMBAL Duloxetine HCl (Duloxetine Hcl 60 Mg Capsule.Dr) 60 mg PO DAILY@1500 JERALD Guanfacine HCl (Guanfacine Hcl Er 1 Mg Tab.Er.24h) 1 mg PO DAILY PRN PRN Reason: Restlessness Last Admin: 12/24/23 17:26 Dose: 1 mg Magnesium Hydroxide (Milk Of Magnesia 30 Ml Oral.Susp) 30 ml PO DAILY PRN PRN Reason: Constipation Nicotine (Nicotine 21 Mg Patch.Td24) 21 mg TRANSDERMA DAILY PRN PRN Reason: smoking cessation Nicotine Polacrilex (Nicotine Polacrilex 2 Mg Gum) 4 mg BUCCAL Q2H PRN PRN Reason: Nicotine Cravings Last Admin: 11/05/23 00:52 Dose: 4 mg Olanzapine (Olanzapine 10 Mg Vial) 2.5 mg IM BEDTIME PRN PRN Reason: refusal of seroquel scheduled Prazosin HCl (Prazosin Hcl 1 Mg Capsule) 2 mg PO BEDTIME JERALD; Protocol Last Admin: 12/25/23 19:55 Dose: Not Given Quetiapine Fumarate (Quetiapine Fumarate 300 Mg Tablet) 300 mg PO BEDTIME JERALD Last Admin: 12/25/23 19:54 Dose: 300 mg Quetiapine Fumarate (Quetiapine Fumarate 50 Mg Tablet) 50 mg PO BID PRN PRN Reason: Agitation, Psychosis Last Admin: 12/26/23 10:40 Dose: 50 mg Trazodone HCl (Trazodone Hcl 50 Mg Tablet) 50 mg PO BEDTIME MRX1 PRN PRN Reason: Insomnia Allergies Allergies Allergy/AdvReac Type Severity Reaction Status Date / Time diphenhydramine Allergy Unknown Verified 11/05/23 02:05 lorazepam Allergy Unknown Verified 11/05/23 02:05 metoclopramide Allergy Unknown Verified 11/05/23 02:05 ondansetron Allergy Unknown Verified 11/05/23 02:05 Assessment & Plan Assessment & Plan (1) Severe recurrent major depression w/psychotic features, mood-congruent: Status: Acute Code(s): F33.3 - Major depressive disorder, recurrent, severe with psychotic symptoms (2) Anorexia: Status: Acute Code(s): R63.0 - Anorexia (3) Delusional disorder: Status: Acute Code(s): F22 - Delusional disorders Plan The patient is something of a conundrum. He has been somewhat less isolative did start going to 1 group and has been eating and drinking better and has had significant weight gain. On the other hand the patient is had escalating symptoms prior to admission where his parents were forced to not cook not have anyone over increase concerns regarding smells and if things were not recently followed patient became severely agitated self-harming punching trivedi punching through a window in did have 1 physical tussle with his father. Patient can not seem to engage in logical conversation regarding what is happening with him is not opened medical judgment and his outpatient neurologist to movement disorder neurologist has felt that he has a significant psychiatric condition that does put him at significant risk. Patient did quite well with antidepressants and antipsychotics previously although on a number of occasions he stated he would start them was cooperative discussing dosing eventually would refuse to take and appears to remain a significant danger to inability to care for self if not out right harm self if he were to return to the same situation as prior to admission. Encourage outpatient treatment and acceptance patient's mother stated she had to stop working order to take care of her son in outpatient basis. Present time continue plan for scheduled commitment hearing treatment plan patient has responded quite well to treatment in the past he is doing better than at home with the structure of the milieu His parents have grave concerns if he were to return home 11/23/23 Continues to refuse not able to process info re dx or treatment 11/24/23 Asking questions regarding medication treatment Anxious about upcoming hearing. 11/25/2023 Patient had been weighing taking medication trying to explain if he is concerned about medication side effects taking very low doses and hospital setting would make sense where he can be under observation and deal with side effects. His movement disorder neurologist and his history suggest he would done quite well with medication in the past but appears to have a fixed belief even though he took medication willingly in years past has never had significant side effects on psychiatric medication but had marked improve response continues to irrational fears that he would stop eating not be able to walk and appears to have a psychotic level of processing when it comes to this information. On the other hand he basically does not feel he has psychiatric illness but a side effect from 1 dose of Reglan many years ago has had thoughts at times that he could be possessed as a way of explaining what he thinks is happening to himself appears to reach somatic delusional proportions with no expressed ideas of how he could manage this himself he does seem to be doing okay in highly structured setting have tried to review repeatedly risks benefits and alternatives and ways to transition out of a commitment setting to collaborative treatment and discharge planning patient appears not to be able to make that transition at this time. 11/27/23 Continue to encourage low-dose medication acceptance patient has no plan to manage any of his symptoms outpatient encourage low-dose medication inpatient so he has some sense where medication might fit into his treatment had done quite well previously on medication according to his movement disorder neurologist case also reviewed with the patient's mother case reviewed in treatment planning 11/30/23 pt has hearing tomm have made multiple entraties for the pt to engage in tx and transition to outpt tx which he has not been able to do has refused tx as outpt 12/01/2023 Commitment hearing completed case reviewed with hcp medication clarified 12/02/23 Continues to refuse medication cannot really give explanation easily angered focused on movement dx meds not effective 12/03/23 Patient continues to be perseverative upset angry over commitment repeatedly reach out patient to try and get collaborative plan discussed trying to use medication that did 12/15/21olerate previously worries about catastrophic reaction continues to say he has movement disorder despite no evidence on exam of movement disorder no akathisia no abnormal movements noted bilirubin is elevated he does complain of altered colored stools will check labs he had refused labs the other morning Continues to really not see ongoing need for medication or counseling. State he is superficially willing but this appears to only be under duress. Recheck labs? GI [id number] chronically elevated bilirubin 12/04/23 Pt less agitated seems less anxious now that court hearing over reviewed orderbfor labs eeg discussed starting tx and invol options if needed 12/05/23 Continue treatment. 12/06/23 Continue treatment 12/07/23 INC seroquel labs reviewed with pt mild dec hct inc ferritin mild inc transaminase 12/08/23 Pt seen with mother inc seroquel change effexor to cymbalta helpless depressed constricted 12/09/2023 Increase Seroquel 100 mg bedtime no current evidence of movement disorder or akathisia Cymbalta 30 mg Effexor discontinued encourage therapeutic [place] need for treatment strategies to deal with symptoms before suicidality hopefully eventually accepting of outpatient treatment 12/10/23 12/11/23 Amitriptyline 10 mg hs prn insomnia 12/13: Continue current regimen and plans 12/14: Continue current plans and regimen. Added amitriptyline 25 mg q.h.s. and clonidine 0.1 b.i.d. p.r.n. 12/15/23 Pt with anxiety more forthcoming regarding triggers with odors forced to isolate severe anxiety depressed withdrawn guarded inc cybalta 60 mg inc seroquel 250 mg 12/16/2023 Cymbalta increased to 60 mg Seroquel 250 mg question some improvement will increase to 300 mg hold at that point given questionable history of akathisia on higher doses d/c planning 12/17/2023 Patient needs much reassurance quite exaggerated thoughts regarding side effects catastrophic thinking did have some brief periods of decreased anxiety and hayes affect 12/18/2023 Patient somewhat anxious and ruminating but seems more reality based in his concerns was able to take in information regarding internal processing difficulties in his experience of his bodily sensations and senses and how this may have led to a psychotic process perhaps from past concussions the patient states he has not had these experiences in a number of weeks appears to be responding to Seroquel Increase Seroquel to 300 mg 12/19: Continue current management and treatment plan. Tolerating medications well. 12/20: Start Prazosin 2 mg HS. Continue current management and treatment plan. Tolerating medications well. 12/21/23 Pt seen in f/u constricted not going to groups internal preoccupation periods of hayes affect at times feels some inc jitteriness ? cymbalta 12/22/23 D/c planning cont cymbalta lower to 30 mg may be inc agitation seroquel 300 mg guarded regarding olfactory sensations and psychosis would avoid changes at this time with flu fever resp sx 12/23/23 seroquel 25 bid 300 hs cbt handouts given techniques [place] manage thoughts 12/24/2023 Patient shows global improvement eating but has periods where more preoccupied other times much hayes affect in more social Encourage Seroquel p.r.n. as needed 12/25/23 Inc cymbalta 60 mg has tenex 1 mg prn seroquel 300 hs parents and pt encouraged to be clear re expectations no si discussing discharge tx options planning which is difficult intense emotions high 12/26/23 seems to be doing better on current combo of medications Patient educated on: diagnosis and medication risk/benefits Informed Consent: further education needed Reason for continued inpatient stay Substantial Risk for: rapid decompensation and med/psych decompensation Time Spent With Patient Time: Total time managing care of this patient today ____ minutes.
[2023-12-26] MEDS: DULoxetine HCl 60 MG CAPSULE.DR PO (15:34)
[2023-12-26] MEDS: QUEtiapine Fumarate 300 MG TABLET PO (19:58)
[2023-12-27 06:00] VITALS: RESP 16
--- NOTE | 2023-12-27 07:55 | PM.EVENT ---
Event Note Date of Service: 12/28/23 Event Note: Chart reveiwed Consult for frequent urination Previously had normal renal function Check Ua, Urine culture, urine osmolarity check Chem 7 Full consult to follow Time Spent With Patient Time: Total time managing care of this patient today ____ minutes.
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
[2023-12-27] MEDS: QUEtiapine Fumarate 50 MG TABLET PO (13:15)
[2023-12-27] MEDS: DULoxetine HCl 60 MG CAPSULE.DR PO (14:52)
[2023-12-27 18:00] VITALS: RESP 18
[2023-12-27] MEDS: guanFACINE HCl ER 1 MG TAB.ER.24H PO (19:13)
[2023-12-27] MEDS: QUEtiapine Fumarate 300 MG TABLET PO (22:29)
[2023-12-28 06:00] VITALS: RESP 16
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
[2023-12-28] MEDS: QUEtiapine Fumarate 50 MG TABLET PO (13:48)
[2023-12-28] MEDS: DULoxetine HCl 60 MG CAPSULE.DR PO (15:08)
[2023-12-28] MEDS: QUEtiapine Fumarate 300 MG TABLET PO (20:24)
[2023-12-29 06:00] VITALS: RESP 18
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
[2023-12-29] MEDS: DULoxetine HCl 60 MG CAPSULE.DR PO (14:57)
[2023-12-29] MEDS: guanFACINE HCl ER 1 MG TAB.ER.24H PO (19:19)
[2023-12-29] MEDS: QUEtiapine Fumarate 300 MG TABLET PO (20:29)
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
== END 2023-12-30 11:35 | disposition other institution (70) | DRG 885 ==
LOC: HO.PM5 12-04 13:37 → HO.OBSV 12-05 00:38 → HO.PM5 12-05 00:38
PROVIDERS: Clinical Nurse Specialist Psychiatric/Mental Health, Adult; Admitting Provider Psychiatry & Neurology Psychiatry; Visit Provider Psychiatry & Neurology Psychiatry
DX: F33.3 Major depressive disorder, recurrent, severe with psychotic symptoms (principal); R45.851 Suicidal ideations; K50.90 Crohn's disease, unspecified, without complications; D64.9 Anemia, unspecified; R63.0 Anorexia; Z68.25 Body mass index [BMI] 25.0-25.9, adult; K12.0 Recurrent oral aphthae; R51.9 Headache, unspecified; Z91.52 Personal history of nonsuicidal self-harm; Z87.820 Personal history of traumatic brain injury; Z91.148 Patient's other noncompliance with medication regimen for other reason; Z79.899 Other long term (current) drug therapy
CPT/HCPCS: 0241U; 36415; 80053; 80061; 80076; 81003; 82175; 82300; 82570; 82728; 83010; 83018; 83036; 83655; 83825; 84443; 85025; 85045; 86038; 86039; 86140; 86364; 86431; 87507

== ENCOUNTER → 2023-11-04 15:43 | Outpatient (BNV) | payer OTHER, SELFPAY | PROVIDERS: Admitting Provider Psychiatry & Neurology Psychiatry; Visit Provider Registered Nurse | DX: F33.3 Major depressive disorder, recurrent, severe with psychotic symptoms (principal); R63.0 Anorexia | CPT/HCPCS: 90792; 99231; 99232; 99499 ==

== ENCOUNTER → 2023-11-04 15:43 | Outpatient (BNV) | payer OTHER, SELFPAY | PROVIDERS: Admitting Provider Psychiatry & Neurology Psychiatry; Visit Provider Student in an Organized Health Care Education/Training Program | DX: Z02.2 Encounter for examination for admission to residential institution (principal) | CPT/HCPCS: 99429; 99499 ==

== ENCOUNTER → 2023-11-04 15:43 | Outpatient (BNV) | payer OTHER, SELFPAY | PROVIDERS: Admitting Provider Psychiatry & Neurology Psychiatry; Visit Provider Psychiatry & Neurology Psychiatry | DX: F33.3 Major depressive disorder, recurrent, severe with psychotic symptoms (principal); R63.0 Anorexia | CPT/HCPCS: 99231; 99232; 99233; 99238 ==

== ENCOUNTER 2024-01-19 10:35 | Outpatient (RCR) | payer OTHER, SELFPAY | END 2024-01-20 23:59 | disposition home or self-care (01) | LOC: HO.PHPA 10:35 | PROVIDERS: Visit Provider Psychiatry & Neurology Psychiatry | DX: F32.9 Major depressive disorder, single episode, unspecified (principal) ==